=== PATIENT | female | born 1955 ===

== ENCOUNTER 2020-06-18 11:47 | Outpatient (REF) | payer MEDICAID, SELFPAY | END 2020-06-18 11:48 | disposition home or self-care (01) | LOC: HO.LAB 11:47 | PROVIDERS: Visit Provider Internal Medicine | DX: Z20.822 Contact with and (suspected) exposure to COVID-19 (principal) | CPT/HCPCS: 36415; C9803; U0003; U0005 ==

== ENCOUNTER 2021-03-05 08:55 | Outpatient (REF) | payer OTHER, SELFPAY ==
[2021-03-05 09:59] LABS: Alanine Aminotransferase 20 U/L (0-31); Albumin Level 4.3 g/dL (3.5-5.0); Alkaline Phosphatase 72 U/L (39-117); Anion Gap 12 (12-20); Aspartate Amino Transferase 18 U/L (5-31); Bilirubin Total 0.5 mg/dL (0.0-1.0); Blood Urea Nitrogen 13 mg/dL (9-16); Calcium 9.9 mg/dL (8.4-10.2); Carbon Dioxide 25 mmol/L (22-29); Chloride 108 mmol/L (96-108); Cholesterol 228 mg/dL; Estimated Glomerular Filt Rate > 60; Glucose Fasting 100 mg/dL (60-99); HDL Cholesterol 47 mg/dL; LDL Cholesterol Calculated 158 mg/dl; Potassium 4.2 mmol/L (3.3-5.1); Sodium 141 mmol/L (135-145); Total Protein 7.2 g/dL (6.5-8.0); Triglycerides 117 mg/dL
== END 2021-03-05 08:56 | disposition home or self-care (01) ==
LOC: HO.LAB 08:55
PROVIDERS: PCP Internal Medicine; Visit Provider Internal Medicine
DX: E78.00 Pure hypercholesterolemia, unspecified (principal); E78.5 Hyperlipidemia, unspecified
CPT/HCPCS: 36415; 80053; 80061

== ENCOUNTER 2021-04-23 13:19 | Outpatient (REF) | payer OTHER, SELFPAY ==
[2021-04-26 21:51] LABS: HPV mRNA E6/E7 rflx Not Detected (Not Detected)
== END 2021-04-23 13:20 | disposition home or self-care (01) ==
LOC: HO.LAB 13:19
PROVIDERS: PCP Internal Medicine; Visit Provider Obstetrics & Gynecology
DX: Z01.419 Encounter for gynecological examination (general) (routine) without abnormal findings (principal); Z11.51 Encounter for screening for human papillomavirus (HPV)
CPT/HCPCS: 87624; 88142

== ENCOUNTER → 2022-04-28 14:15 | Outpatient (BNVA) | payer OTHER, SELFPAY | PROVIDERS: PCP Internal Medicine; Visit Provider Obstetrics & Gynecology | DX: Z13.89 Encounter for screening for other disorder (principal) ==

== ENCOUNTER 2022-05-13 10:13 | Outpatient (REF) | payer OTHER, SELFPAY ==
--- NOTE | ~2022-05-13 | MM_ITS ---
EXAMINATION: BONE DENSITOMETRY CLINICAL INDICATION: Asymptomatic menopausal state. COMPARISON: None (current study represents initial baseline exam). TECHNIQUE: Using a Gigalocal DXA System (software version: 13.1) manufactured by [employer], dual-energy x-ray absorptiometry was performed of the lumbar spine and left hip. The images are of good technical quality. Summary results are attached. FINDINGS: AP SPINE L1-L4: BMD 0.853 g/cm2, Z-score -1.2, T-score -2.7, osteoporosis. LEFT FEMUR, NECK: BMD 0.716 g/cm2, Z-score -0.9, T-score -2.3, osteopenia. LEFT FEMUR, TOTAL: BMD 0.742 g/cm2, Z-score -1.0, T-score -2.1, osteopenia. IDENTIFIED RISK FACTORS: Menopause. HISTORY OF FRACTURE: None listed. MEDICATIONS: Vitamin D. MM/XR DEXA axial skeleton IMPRESSION: 1. DIAGNOSIS: Osteoporosis based on the lowest T-score value of -2.7 in the lumbar spine applying World Health Organization criteria. 2. 10-YEAR FRACTURE RISK PREDICTION, FRAX: According to the guidelines, FRAX calculation should only be performed on patients in the osteopenia bone density category. Therefore, FRAX was not performed on this patient.? 3. Treatment Recommendations: NOF guidelines recommend consideration for treatment in postmenopausal women and men age 50 and older presenting with the following: -A hip or vertebral (clinical or morphometric) fracture. -T-score less than or equal to -2.5 at the femoral neck or spine after appropriate evaluation to exclude secondary causes. -Low bone mass at the hip or spine and a 10-year fracture probability by FRAX of greater than or equal to 3% for hip fracture or greater than or equal to 20% for major osteoporotic fracture based on the [place] adapted WHO algorithm. 4. Other Recommendations: All treatment decisions require clinical judgment and consideration of individual patient factors, including patient preferences, comorbidities, previous drug use, risk factors not captured in the FRAX model (e.g. frailty, falls, vitamin D deficiency, increased bone turnover, interval significant decline in bone density) and possible under or overestimation of fracture risk by FRAX. Additional medical evaluation for secondary cause of low bone mineral density may be appropriate. FUTURE SCAN RECOMMENDATION: People with diagnosed cases of osteoporosis or at high risk for fracture should have regular bone mineral density tests. For patients eligible for Medicare, routine testing is allowed once every 2 years. The testing frequency can be increased to one year for patients who have rapidly progressing disease, those who are receiving or discontinuing medical therapy to restore bone mass, or have additional risk factors.
--- NOTE | ~2022-05-13 | MM_ITS ---
EXAMINATION: MM SCREENING DIGITAL BREAST TOMOSYNTHESIS, BILATERAL CLINICAL INFORMATION: Screening. Asymptomatic. Prior history remote reduction mammoplasty and mastopexy. The lifetime risk of breast cancer based on the Tyrer-Cuzick Model is 5%. COMPARISON: Mammography: 05/31/2018, 04/28/2017, 10/03/2016 TECHNIQUE: Digital breast tomosynthesis is performed in both the craniocaudal and mediolateral oblique views along with computer-aided detection (CAD). Synthesized 2D images are generated from the tomosynthesis. FINDINGS: There are scattered areas of fibroglandular density (ACR BI-RADS breast composition Category b). There are scattered bilateral asymmetries and fibronodular densities without significant change. No architectural abnormality or significant mass. There are scattered bilateral benign isolated and grouped round and coarse calcifications consistent with the prior surgery. The axilla are unremarkable. No significant change. MM/MM tomosynthesis screening BI IMPRESSION: No mammographic evidence of malignancy. ASSESSMENT: BI-RADS 2: Benign RECOMMENDATION: Routine annual mammography screening. This patient's information was entered into a reminder system with a target due date for their next mammogram.
== END 2022-05-13 10:14 | disposition home or self-care (01) ==
LOC: HO.MAMMO 10:13
PROVIDERS: PCP Internal Medicine; Visit Provider Obstetrics & Gynecology
DX: Z12.31 Encounter for screening mammogram for malignant neoplasm of breast (principal); Z13.820 Encounter for screening for osteoporosis; Z78.0 Asymptomatic menopausal state
CPT/HCPCS: 77063; 77067; 77080

== ENCOUNTER → 2022-05-22 10:56 | Outpatient (BNVA) | payer OTHER, SELFPAY | PROVIDERS: PCP Internal Medicine; Visit Provider Obstetrics & Gynecology | DX: M81.0 Age-related osteoporosis without current pathological fracture (principal); Z78.0 Asymptomatic menopausal state | CPT/HCPCS: 99212 ==

== ENCOUNTER 2023-04-30 13:32 | Outpatient (AMB) | payer MEDICARE, MEDICAID, SELFPAY ==
--- NOTE | 2023-04-30 13:38 | MHC.OFFVIS ---
Intake Vital Signs 04/30/23 13:39 Height 5 ft 4 in Weight 148 lb BMI 25.4 Intake Visit Reasons: Annual Project Administrative Assistant Required: Yes Project Administrative Assistant Language: Rn Transition Name: Jaimee Adame Information Interpreted: non-clinical & clinical Community Health Nursing Director: Community Health Nursing Director Present (Jaimee) Allergies No Known Allergies Allergy (Verified 04/30/23 13:41) Is last menstrual period known: No Post menopausal: Yes Patient : No HPI HPI Comments History of Present Illness Details Presenting for annual exam. No complaints. Last Pap/HPV was negative in 04/20 Last Mammogram was BI-RADS 2 in 05/22 Last Colonoscopy was in 2013, the patient was referred to GI for screening colonoscopy last year Last DEXA scan was done in 05/22 showed osteoporosis and the patient was prescribed alendronate , the patient developed bone and joint pain, muscle aches, headache and itching so she discontinued it on her own [facility] Medical History Physical exam Screening for cervical cancer Chronic left shoulder pain Allergic rhinitis Constipation Pure hypercholesterolemia GERD (gastroesophageal reflux disease) Surgical History Hx of abdominoplasty History of bladder suspension procedure Family History Father CVD (cardiovascular disease) Mother Unknown family medical history Sister Breast cancer Pancreatic cancer Social History Household Members Other:: son Housing: Apartment Alcohol intake: current Alcohol intake frequency: holidays/special occasions only Alcohol type: wine Patient Tobacco Use Status: Never used Tobacco Tobacco use type: Cigarette e-Cigarette/Vaping Use: Never Used Second Hand Smoke Exposure: No Patient : No service: No Current occupational status: unemployed Sexual orientation: Straight/Heterosexual Gender identity: Female Female Reproductive History Menstrual Age of Menarche: 15 control method: none Total pregnancies: 2 Full term: 2 Number of Living Children: 2 Date of last pap smear: 04/25/21 (negative) Date of Mammogram: 05/13/22 Date of last Bone Density Screenin05/13/22 Review of Systems Const All systems reviewed & are unremarkable except as noted in HPI and below Card Reports as per HPI Resp Reports as per HPI GI Reports as per HPI and Reports no additional complaints Reports as per HPI Physical Exam Vital Signs: BMI result Body Mass Index 25.4 Const General: cooperative, healthy appearing and comfortable Chest Chest palpation & inspection: normal inspection of the chest and normal palpation of entire chest wall Breast/axilla inspection: normal inspection of the breasts and normal inspection of the axillae Breast/axilla palpation: normal palpation of the breasts, normal palpation of the axillae and no axillary lymphadenopathy Resp Effort & Inspection: normal respiratory effort Auscultation: clear to auscultation bilaterally Percussion: percussion normal Cardio Palpation: normal PMI Rate: regular rate Rhythm: regular rhythm Heart sounds: no murmurs and no rubs Peripheral pulses: Peripheral pulses 2+ throughout GI Inspection: Yes normal to inspection Palpation (GI): Soft to palpation, nontender, no guarding, not rigid and No hepatosplenomegaly present Percussion: Yes normal to percussion Auscultation: normal bowel sounds Rectal Exam - Female: deferred General: Yes bladder normal to palpation External Female Exam: No lesion Speculum Exam - Vagina: normal appearance of the vagina, normal palpation, normal vaginal discharge and not erythematous Speculum Exam - Cervix: normal appearance of the cervix and normal palpation Bimanual exam- vagina & uterus: normal bimanual exam, normal palpation, uterine size normal, bladder normal to palpation, consistency normal and normal palpation Bimanual Exam- Adnexa, other: normal adnexae, no masses and no tenderness Assessment & Plan Assessment & Plan (1) Well woman exam: Code(s): Z01.419 - Encounter for gynecological examination (general) (routine) without abnormal findings Plan: Co testing not indicated since the patient 's age is above 65 with no history of abnormal Pap smears last 25 years. Counseled the patient about the recommended dietary allowance of 1200 mg of Calcium & 800 IU of vitamin D. Mammogram ordered. Referred her for screening colonoscopy . The patient was instructed to perform monthly self-breast exams and to schedule a follow-up appointment and an annual exam in a year; All questions answered and the patient verbalized understanding. (2) Osteoporosis: Comment: With side effects to alendronate Code(s): M81.0 - Age-related osteoporosis without current pathological fracture Plan: Since the patient developed side effects alendronate will refer to Rheumatology for further management of her osteoporosis Orders: Orders MM tomosynthesis screening BI Today Z12.31 - Encounter for screening mammogram for malignant neoplasm of breast Referrals Rheumatology Referral M81.0 - Age-related osteoporosis without current pathological fracture Coding Level of Care Code Est Pt Prev Care >65y(92332) Diagnoses Well woman exam Z01.419 Osteoporosis M81.0
[2023-04-30 13:39] VITALS: BMI 25.4
== END 2023-04-30 14:01 | disposition home or self-care (01) ==
LOC: HO.HWS 13:32
PROVIDERS: PCP Internal Medicine; Visit Provider Obstetrics & Gynecology
DX: M81.0 Age-related osteoporosis without current pathological fracture (principal); Z01.419 Encounter for gynecological examination (general) (routine) without abnormal findings
CPT/HCPCS: 99213; G0101

== ENCOUNTER → 2023-04-30 13:32 | Outpatient (BNVA) | payer MEDICARE, MEDICAID, SELFPAY | PROVIDERS: PCP Internal Medicine; Visit Provider Obstetrics & Gynecology | DX: Z01.419 Encounter for gynecological examination (general) (routine) without abnormal findings (principal); M81.0 Age-related osteoporosis without current pathological fracture | CPT/HCPCS: 99212; G0101 ==

== ENCOUNTER 2023-09-11 12:59 | Outpatient (REF) | payer MEDICARE, MEDICAID, SELFPAY | END 2023-09-11 13:00 | disposition home or self-care (01) | LOC: HO.MAMMO 12:59 | PROVIDERS: PCP Internal Medicine; Visit Provider Obstetrics & Gynecology | DX: Z12.31 Encounter for screening mammogram for malignant neoplasm of breast (principal) | CPT/HCPCS: 77063; 77067 ==

== ENCOUNTER → 2023-09-11 13:15 | Outpatient (BNV) | payer MEDICARE, MEDICAID, SELFPAY | PROVIDERS: PCP Internal Medicine; Visit Provider Radiology Diagnostic Radiology | DX: Z12.31 Encounter for screening mammogram for malignant neoplasm of breast (principal) | CPT/HCPCS: 77063; 77067 ==

== ENCOUNTER → 2023-09-18 08:44 | Outpatient (BNVA) | payer MEDICARE, MEDICAID, SELFPAY | PROVIDERS: PCP Internal Medicine; Visit Provider Nurse Practitioner Family ==

== ENCOUNTER 2024-02-22 15:48 | Outpatient (AMB) | payer OTHER, SELFPAY ==
--- NOTE | 2024-02-22 15:57 | A.OFFPC_ITS ---
Vital Signs 02/22/24 15:59 Height 5 ft 4 in Weight 154 lb BMI 26.4 BP 136/82 Blood Pressure Location Lt brachial Position Sitting Intake Visit Reasons: annual exam Intake Note: Patient here for an annual physical exam Manager Books Required: No Accompanied by: Self / Same As Patient Allergies alendronate sodium Adverse Reaction (Intermediate, Verified 02/22/24 16:39) nausea, joint pain Medication List - Last Reconciled 02/22/24 by Yolanda Reyes MD No Known Home Meds Tobacco use date assessed: 02/22/24 Fall risk assessment: No Falls in past year Last assessed Fall Risk: 02/22/24 Dental Screening Dental Screen Date: 02/22/24 Did you have a dental visit in the last 12 months?: Yes Did you have a dental problem in the last 6 months where you did not have access to dental care?: No Was dental information given to patient?: Patient has dentist HPI HPI Comments History of Present Illness Details The patient is a 68-year-old female presenting for her routine annual physical examination. She has a history of osteoporosis, diagnosed with a bone density T-score of -2.7, where treatment was initiated with Alendronate (Fosamax), a medication taken once weekly. However, the patient experienced s ignificant adverse reactions, including severe musculoskeletal pain, dizziness, stomach upset, and widespread pruritus, which led to discontinuation of the medication without seeking further medical evaluation for those side effects. She reports a past history of abdominoplasty with breast lifting and bladder suspension surgery. There is a family history of breast and pancreatic cancer in a sister, as well as coronary heart disease in her father who at 65. She confirms completing a mammogram and bone densitometry last year. Regarding her gastrointestinal symptoms, the patient has occasional acid secretion, which will be addressed with omeprazole. - Mammogram: Completed, 2023 - Bone density testing: Completed last y ear, results noted osteoporosis. - Declined influenza and pneumonia vacci nations. - Discussions regarding colonoscopy plan shahram for the following year. - Discussed referral to rheumatology or endocrinology for osteoporosis management alternatives. - Laboratory tests for cholesterol, bloo d sugar, kidney, and liver function are pending. [facility] Medical History Physical exam Screening for cervical cancer Chronic left shoulder pain Allergic rhinitis Constipation Pure hypercholesterolemia GERD (gastroesophageal reflux disease) Surgical History Hx of abdominoplasty History of bladder suspension procedure Family History (Updated 02/22/24 @ 16:36 by Yolanda Reyes MD) Father CVD (cardiovascular disease) Mother Unknown family medical history Sister Breast cancer Pancreatic cancer Social History Household Members Other:: son Housing: Apartment Alcohol intake: current Alcohol intake frequency: holidays/special occasions only Alcohol type: wine Patient Tobacco Use Status: Never used Tobacco Tobacco use type: Cigarette e-Cigarette/Vaping Use: Never Used Second Hand Smoke Exposure: No service: No Current occupational status: unemployed Sexual orientation: Straight/Heterosexual Gender identity: Female Cognitive needs: No Hearing needs: No Vision needs: No Female Reproductive History Menstrual Age of Menarche: 15 Questionnaire PHQ-9 Over the last 2 weeks, how often have you been bothered by any of the following problems? 1. Little interest or pleasure in doing things: not at all 2. Feeling down, depressed, or hopeless: not at all 3. Trouble falling or staying asleep, or sleeping too much: not at all 4. Feeling tired or having little energy: not at all 5. Poor appetite or overeating: not at all 6. Feeling bad about yourself - or that you are a failure or have let yourself or your family down: not at all 7. Trouble concentrating on things, such as reading the newspaper or watching television: not at all 8. Moving or speaking so slowly that other people could have noticed. Or the opposite - being so fidgety or restless that you have been moving around a lot more than usual: not at all 9. Thoughts that you would be better off or of hurting yourself in some way: not at all Total score: 0 Depression Screening Interpretation: Negative Depression Screening Done: Yes 04482 - PHQ-9 Billing: Yes Source: Developed by Drs. Chepe Carmona, Rosemarie Jin, Cruz Lowery and colleagues, with an educational carmen from for; to (do). Thrive Questionnaire Date Thrive assessed: 02/22/24 I am a: Patient What is your living situation today?: I have a steady place to live Within the past 12 months, did the food you bought not last and you didn't have the money to get more?: Never true Within the past 12 months, did you worry whether your food would run out before you got money to buy more?: Never true Do you have trouble paying for medicines?: No Do you have trouble getting transportation to medical appointments?: No Do you have trouble paying your heating and electricity bill?: No Do you have trouble taking care of your child, family member or friend?: No Do you have trouble with day-to-day activities such as bathing, preparing meals, shopping, managing finances, etc.?: No Are you currently unemployed and looking for a job?: No Are you interested in more education?: No Please select the resources that you would like help with: None Currently or been in a relationship where the following occur: No concerns reported THRIVE Score: 0 AUDIT C Alcohol Use Questionnaire (AUDIT-C) 1. How often do you have a drink containing alcohol?: Never Total Score: 0 CINDY-7 AMB Questionnaire CINDY-7 Date CINDY - 7 assessed: 02/22/24 Feeling nervous, anxious, or on edge: 0 = Not at all Not being able to stop or control worryin = Not at all Worrying too much about different things: 0 = Not at all Trouble relaxin = Not at all Being so restless that it is hard to sit still: 0 = Not at all Becoming easily annoyed or irritable: 0 = Not at all Feeling afraid as if something awful might happen: 0 = Not at all Total CINDY-7 score (0-4 normal; 5-9 mild; 10-14 moderate; 15-21 severe): 0 Source: Developed by Drs. Chepe Carmona, Rosemarie Jin, Cruz Lowery and colleagues, with an educational carmen from for; to (do). CINDY-7 Assessment Billing CINDY-7 Assessment Tool: CINDY-7 Assessment 24358 Review of Systems Const All systems reviewed & are unremarkable except as noted in HPI and below Eyes Reports no additional complaints, Denies change in vision and Denies other visual disturbances Card Denies chest pain at rest, Denies chest pain with activity, Denies edema, Denies irregular heart rhythm, Denies claudication, Denies dyspnea, Denies dyspnea on exertion, Denies orthopnea, Denies paroxysmal nocturnal dyspnea and Denies slow heart rate Resp Denies cough, Denies dyspnea and Denies dyspnea on exertion GI Denies abdominal pain, Denies change in bowel habits, Denies excessive flatus, Denies nausea and Denies vomiting Denies urinary incontinence, Denies urinary hesitancy and Denies urinary urgency Physical exam (Primary Care) Vital Signs: Last Vital Signs BP 136/82 02/22/24 15:59 BMI result Body Mass Index 26.4 Tobacco/Smoking Status: Tobacco use Status Tobacco use date assessed 02/22/24 02/22/24 16:05 Patient Tobacco Use Status Never used Tobacco 02/22/24 16:05 Tobacco use type Cigarette 02/22/24 16:05 e-Cigarette/Vaping Use Never Used 02/22/24 16:05 PHQ-9: PHQ-9 Score PHQ-9: Total score 0 02/22/24 16:36 Depression Screening Interpretation: Negative Thrive Assessment: Date of Thrive Assessment Date Thrive assessed 02/22/24 02/22/24 16:05 Currently or been in a relationship where the following occur: No concerns reported HENMT Head: Yes normal to inspection, Yes normocephalic and Yes atraumatic Ears: external ears normal Eyes General: appearance normal, both eyes and all related structures Eyelids: Yes eyelids normal Conjunctivae: conjunctivae normal Neck Neck: Yes normal visual inspection and Yes supple Resp Effort & Inspection: normal respiratory effort Auscultation: clear to auscultation bilaterally Cardio Jugular venous distension: no JVD Rate: regular rate Rhythm: regular rhythm Heart sounds: S1 normal heart sound present and S2 normal heart sound present GI Inspection: Yes normal to inspection Palpation (GI): Soft to palpation and nontender Auscultation: normal bowel sounds Skin General skin exam: no rashes or lesions noted Neuro General: no focal motor deficits Extrem General: Yes full ROM Psych Appearance: grossly normal Office Procedures Flu Questionnaire Does the patient have a severe egg allergy?: No Immunizations Fluarix Triv [id number] (PF) 45 mcg (15 mcg x 3)/0.5 mL IM syringe Performing Provider: Yolanda Reyse MD [facility] [place] Documented (not given) by: JYOTSNA Lindo on 02/22/24 16:05 Reason Not Given: Patient Refused Coding Level of Care Code Est Pt Level 3 (30680) Est Pt Prev Care >65y(67896) Diagnoses Physical exam Z00.00 Gastroesophageal reflux disease, unspecified whether esophagitis present K21.9 Esophagitis presence: esophagitis presence not specified Osteoporosis M81.0 Additional Codes CINDY-7 Assessment Billing - CINDY-7 Assessment Tool: CINDY-7 Assessment 18588 ([id number]) PHQ-9 - 01179 - PHQ-9 Billing: Yes ([id number]) Time Spent (min) 33 Assessment & Plan Assessment & Plan (1) Physical exam: Code(s): Z00.00 - Encounter for general adult medical examination without abnormal findings Category: Medical (2) GERD (gastroesophageal reflux disease): Code(s): K21.9 - Gastro-esophageal reflux disease without esophagitis Category: Medical Qualifiers: Esophagitis presence: esophagitis presence not specified Qualified Code(s): K21.9 - Gastro-esophageal reflux disease without esophagitis (3) Osteoporosis: Comment: With side effects to alendronate Code(s): M81.0 - Age-related osteoporosis without current pathological fracture Category: Medical Plan - Osteoporosis: Discontinue Fosamax due to severe adverse effects. Consider referral to rheumatology or endocrinology for alternative options such as Parathyroid Hormone analog Prolia) or an annual infusion of bisphosphonate. - GERD: Initiate treatment with omeprazole, a proton pump inhibitor, to manage acid symptoms. - Constipation: Continue evaluations and manage symptoms as needed. - Health Maintenance: Advise laboratory tests this or next week to check cholesterol, blood sugar, kidney, and liver functions. - Vaccinations: Patient declined flu and pneumonia vaccines; monitor for changes in decision. Patient was informed and verbally consented to the use of an ambient scribe for clinic note documentation during this visit. I discussed with the patient the adverse effects experienced with Alendronate and the possibility of alternative therapies for osteoporosis management, including options with less frequent dosing such as Prolia injections or annual bisphosphonate infusions. These alternatives were mentioned regarding their efficacy and usability. For GERD management, we agreed on starting omeprazole. The patient opted out of influenza and pneumonia vaccinations despite explanations of their benefits. We agreed to proceed with routine laboratory work to assess cardiovascular and metabolic health. For osteoporosis management, referral to a food vendor or butter grader was suggested for further evaluation and specialized treatment. Orders: Orders Influenza [id number] Immunization Today Z23 - Encounter for immunization Comprehensive [place]. Panel Fast Today Z00.00 - Encounter for general adult medical examination without abnormal findings Lipid Panel Today Z00.00 - Encounter for general adult medical examination without abnormal findings Referrals Rheumatology Referral M81.0 - Age-related osteoporosis without current pathological fracture Medications: New sennosides (Senna Lax) 8.6 mg PO BEDTIME 90 tabs 1RF 90 days omeprazole 20 mg PO DAILY 90 caps 0RF 90 days Patient Instructions: - Discontinue Fosamax and monitor for any persistent symptoms. - Start omeprazole for management of GERD symptoms. - Follow up with referred specialists for osteoporosis management. - Complete laboratory tests as discussed, at your earliest convenience. - Consider reconsidering vaccinations in the future for influenza and pneumonia. - Return should you experience any new or worsening symptoms related to current health issues discussed.
[2024-02-22 15:59] VITALS: BP 136/82; BMI 26.4
== END 2024-02-22 16:43 | disposition home or self-care (01) ==
PROVIDERS: PCP Internal Medicine; Visit Provider Internal Medicine
DX: Z00.00 Encounter for general adult medical examination without abnormal findings (principal); K21.9 Gastro-esophageal reflux disease without esophagitis; M81.0 Age-related osteoporosis without current pathological fracture

== ENCOUNTER → 2024-02-22 15:48 | Outpatient (BNVA) | payer OTHER, SELFPAY | PROVIDERS: PCP Internal Medicine; Visit Provider Internal Medicine | DX: Z00.01 Encounter for general adult medical examination with abnormal findings (principal); K21.9 Gastro-esophageal reflux disease without esophagitis; M81.0 Age-related osteoporosis without current pathological fracture | CPT/HCPCS: 96127; 99212; 99397 ==

== ENCOUNTER 2024-03-01 06:42 | Day surgery (SDC) | payer OTHER, SELFPAY ==
[2024-02-24 13:49] VITALS: BMI 26.4
--- NOTE | 2024-02-29 09:35 | HO.ANESPROP2 ---
Documented by User: Pricila Dexter NP 02/29/24 09:36 HPI - Anesthesia Eval Consult details Narrative: 68yo F for Colonoscopy PMFSH Active Problems Active Problems: All Active Problems Lumbar degenerative disc disease (Acute) Osteoporosis (Acute) Menopause (Acute) Well woman exam (Acute) Physical exam (Acute) Screening for cervical cancer (Acute) Pure hypercholesterolemia (Acute) GERD (gastroesophageal reflux disease) (Acute) Past Medical History Medical History Screening for cervical cancer Chronic left shoulder pain Allergic rhinitis Constipation Pure hypercholesterolemia GERD (gastroesophageal reflux disease) Family History Family History Father CVD (cardiovascular disease) Mother Unknown family medical history Sister Breast cancer Pancreatic cancer Surgical History Surgical History Hx of abdominoplasty History of bladder suspension procedure Social History Social History Household Members Other:: son Housing: Apartment Alcohol intake: current Alcohol intake frequency: does not drink Alcohol type: wine Patient Tobacco Use Status: Never used Tobacco Tobacco use type: Cigarette e-Cigarette/Vaping Use: Never Used Second Hand Smoke Exposure: No Have you been hit, kicked, punched, or otherwise hurt by someone within the past year? If so, by whom?: No Are you DNR?: No Advance Directives: No Advance Directives Information Provided: Yes Recently lost weight without trying: No Nutrition Risks: No Nutritional Risk service: No Current occupational status: unemployed Sexual orientation: Straight/Heterosexual Gender identity: Female Cognitive needs: No Hearing needs: No Vision needs: No Meds Allergies Allergy/AdvReac Type Severity Reaction Status Date / Time alendronate sodium AdvReac Intermediate nausea, Verified 02/22/24 16:39 joint pain Exam Height,Weight and Vital Signs: Height 5 ft 4 in Weight 69.853 kg Assessment and Plan Assessment Anesthesia Assessment: Chart Reviewed Documented by User: Irena Macias MD 03/01/24 08:49 PMFSH Past Medical History Medical History Screening for cervical cancer Chronic left shoulder pain Allergic rhinitis Constipation Pure hypercholesterolemia GERD (gastroesophageal reflux disease) Family History Family History Father CVD (cardiovascular disease) Mother Unknown family medical history Sister Breast cancer Pancreatic cancer Family history of problems with anesthesia: No Surgical History Surgical History Hx of abdominoplasty History of bladder suspension procedure History of Problems with Anesthesia: No Social History Social History Household Members Other:: son Housing: Apartment Alcohol intake: current Alcohol intake frequency: does not drink Alcohol type: wine Patient Tobacco Use Status: Never used Tobacco Tobacco use type: Cigarette e-Cigarette/Vaping Use: Never Used Second Hand Smoke Exposure: No Have you been hit, kicked, punched, or otherwise hurt by someone within the past year? If so, by whom?: No Are you DNR?: No Advance Directives: No Advance Directives Information Provided: Yes Recently lost weight without trying: No Nutrition Risks: No Nutritional Risk service: No Current occupational status: unemployed Sexual orientation: Straight/Heterosexual Gender identity: Female Cognitive needs: No Hearing needs: No Vision needs: No Meds Allergies Allergy/AdvReac Type Severity Reaction Status Date / Time alendronate sodium AdvReac Intermediate nausea, Verified 02/22/24 16:39 joint pain Exam Airway Mallampati Class: II TM Dist: >3cm Neck ROM: Full Heart: rrr Lungs: cta Assessment and Plan Assessment Anesthesia Assessment: Anesthesia Plan Discussed Final Anesthetic Review Family History of Problems with Anesthesia: No History of Problems with Anesthesia: No NPO: Yes ASA Class: II Final Preanesthetic Review: No Changes in Pt Med Stat, Meds/Allgs Chart Reviewed, Consent Obtained/Reviewed and Anes Risks/Benef Reviewed Patient Risk: Intermediate Procedure Risk: Low Anesthetic Plan Anesthetic Plan: MAC: Disposition: Standard PACU
[2024-03-01 07:10] VITALS: BP 144/92; PULSE 100; RESP 20; TEMP 37; O2SAT 98; BMI 26.6
[2024-03-01] MEDS: Lactated Ringers 1,000 ML 100 ML IVCONT (07:30)
--- NOTE | 2024-03-01 08:09 | MHC.SHP ---
Pre-Procedural Eval Section A - 24 Hr Update-Section A only Date of Service: 03/01/24 Section B - Complete if H&P > 30 days Chief Complaint: screening Relevant Family History (Specify if Yes): No Relevant Social History: None Present Medications: see Short Stay Collaborative assessment Medical History: Significant History (Chronic left shoulder pain Allergic rhinitis Constipation Pure hypercholesterolemia GERD (gastroesophageal reflux disease)) History of Previous Operations: Relevant previous surgery/procedure and date(s) ( Hx of abdominoplasty History of bladder suspension procedure) Allergies: Allergies Allergy/AdvReac Type Severity Reaction Status Date / Time alendronate sodium AdvReac Intermediate nausea, Verified 02/22/24 16:39 joint pain Review of Systems Sugical H&P ROS: Negative: Constitution, Cardiovascular, Respiratory, Neurological, Psychiatric, Hem-Onc, Allergic/Immunologic, Gastrointestinal, Genitourinary, Musculoskeletal, Integumentary, Endocrine and Eyes/Ears/Nose/Throat Exam Surgical H&P Exam: Normal: HEENT, Normal: Heart, Normal: Lungs, Normal: Extremities, Normal: Abdomen, Normal: Skin and Normal: Neurological Plan Diagnosis/Plan: Unchanged I have reviewed the history and physical and performed a pertinent physical examination on my patient. No changes have occurred unless specified. Time Spent With Patient Time: Total time managing care of this patient today ____ minutes.
--- NOTE | 2024-03-01 08:48 | P.OPN-COLO_ITS ---
Colonoscopy Operative Note Operative Note Date of Service: 03/01/24 Narrative: Operative Information Procedure Description: Colonoscopy Indication: screening, hx of polyps Anesthesia: MAC COLONOSCOPY Instrument: Olympus variable stiffness pediatric scope 190L Colonoscopy Monitoring: Vital signs and clinical assessment, continuous EKG monitoring, Pulse oximetry, Carbon Dioxide monitoring and blood pressure monitoring were done throughout the procedure. Colon withdrawal time was 22 minutes. Procedure: The patient was placed in the left lateral decubitis position and pre-procedure medications were administered. After a digital rectal examination of the ano-rectum, the video colonoscope was inserted into the rectum and advanced through the colon to the cecum/TI. The colonoscope was slowly withdrawn in a retrograde panoramic fashion and the colon mucosa was carefully examined including a retroflexed view of the rectum. Findings and interventions are described below. Procedure Difficulty: easy Findings: Terminal Ileum-normal Cecum: x 2 sessile polyps 4-6 mm removed with cold forceps Ascending Colon: x1 sessile polyp 5-7 mm removed with cold forceps Transverse Colon - 6-9 mm sessile polyp removed with cold snare Descending Colon:normal Sigmoid Colon: 9-10 mm sessile polyp removed with cold snare Rectum: Retroflexion with small internal hemorrhoids seen, grade I, at 15 cm from anal verge a large pedunculated polyp about 20 mm, injected with 2 cc of epinephrine then removed with hot snare and removed with hot snare with 2 clips applied Anorectum - normal Intervention: cold snare, cold forceps, hot snare and epinephrine injection Colon preparation: [place] Bowel Preparation Scale Right colon; 2 Transverse colon: 2 Left colon; 2 (0 = Unprepared colon segment with mucosa not seen due to solid stool that cannot be cleared. 1 = Portion of mucosa of the colon segment seen, but other areas of the colon segment not well seen due to staining, residual stool and/or opaque liquid. 2 = Minor amount of residual staining, small fragments of stool and/or opaque liquid, but mucosa of colon segment seen well. 3 = Entire mucosa of colon segment seen well with no residual staining, small fragments of stool or opaque liquid) Impression and Post Procedure Diagnosis: colon polyps internal hemorrhoids Plan: High fiber diet leaflet Avoid straining at stool, epsom salts and sitz bath, anusol supps or cream Repeat Colonoscopy in 6 months or earlier if clinically indicated Above findings were reviewed with the patient and relevant handouts were provided if indicated.
[2024-03-01 08:52] VITALS: BP 90/53; PULSE 83; RESP 16; TEMP 36.1; O2SAT 94
[2024-03-01 09:08] VITALS: BP 144/96; PULSE 93; RESP 16; TEMP 36.1; O2SAT 97
== END 2024-03-01 09:39 | disposition home or self-care (01) ==
PROVIDERS: PCP Internal Medicine; Visit Provider Internal Medicine Gastroenterology
PROC: 0DJD8ZZ Inspection of Lower Intestinal Tract, Via Natural or Artificial Opening Endoscopic (ICD-10-PCS; CPT 45378; principal; 2024-03-01 08:20)
DX: Z12.11 Encounter for screening for malignant neoplasm of colon (principal); Z86.0101 Personal history of adenomatous and serrated colon polyps; C20 Malignant neoplasm of rectum; D12.0 Benign neoplasm of cecum; D12.2 Benign neoplasm of ascending colon; D12.3 Benign neoplasm of transverse colon; K64.0 First degree hemorrhoids; K59.00 Constipation, unspecified; K21.9 Gastro-esophageal reflux disease without esophagitis; E78.00 Pure hypercholesterolemia, unspecified; J30.9 Allergic rhinitis, unspecified; Z56.0 Unemployment, unspecified; Z79.899 Other long term (current) drug therapy; Z88.8 Allergy status to other drugs, medicaments and biological substances
CPT/HCPCS: 45385; 45380; 45381; 88305; 88341; 88342; 88360; J0171; J2003; J2704

== ENCOUNTER → 2024-03-01 06:42 | Outpatient (BNV) | payer OTHER, SELFPAY | PROVIDERS: PCP Internal Medicine; Visit Provider Internal Medicine Gastroenterology | DX: Z12.11 Encounter for screening for malignant neoplasm of colon (principal); Z86.0100 Personal history of colon polyps, unspecified; D12.0 Benign neoplasm of cecum; D12.2 Benign neoplasm of ascending colon; D12.3 Benign neoplasm of transverse colon; D12.5 Benign neoplasm of sigmoid colon; D12.8 Benign neoplasm of rectum; K64.0 First degree hemorrhoids | CPT/HCPCS: 45380; 45381; 45385 ==

== ENCOUNTER 2024-03-11 08:52 | Outpatient (AMB) | payer OTHER, SELFPAY ==
--- NOTE | 2024-03-11 08:55 | A.OFFVIS_ITS ---
Vital Signs 03/11/24 08:57 Height 5 ft 4 in Weight 152 lb 1.903 oz BMI 26.1 BP 164/8 H Blood Pressure Location Lt brachial Position Sitting Pulse 128 H Intake Visit Reasons: f/u colonoscopy results Intake Note: Amrita presents in the office as a follow up for colonoscopy results. CC: She states that she is not having any concerns other than the results. Agricultural Research Technician Required: Yes Agricultural Research Technician Name: Megan [id number] Allergies alendronate sodium Adverse Reaction (Intermediate, Verified 03/11/24 08:59) nausea, joint pain HPI HPI f/u colonoscopy results: Details: 68 yr old f here for f/u She had colonoscopy 03/01/24 She had several polyps removed, there was one in the rectum with path revealing invasive adenocarcinoma she has no symptoms, no abdo pain reviewed CRC and treatment outlines with help of wire wheeler EXAM: GENERAL: The patient is well developed and nontoxic. VITAL SIGNS:see workflow HEENT: Nonicteric sclerae, PERRLA, EOMI. Oropharynx clear. Moist mucous membranes. Conjunctivae appear well perfused. No thyroid mass. CHEST: Chest wall is nontender. HEART: Regular rate and rhythm without murmurs. LUNGS: Clear to auscultation bilaterally. ABDOMEN: Soft, positive bowel sounds, nontender, no organomegaly.no flank tenderness SKIN: No rash, no excessive bruising, petechiae, or purpura. NEUROLOGIC: Cranial nerves II-XII intact without motor/sensory deficit. Psych: normal affect A/p: 1/ COlon cancer--rectum---wild type PLAN: 1/ refer oncology and surgery- will order CT scan --might need MRI as well will defer to onc 2/ repeat colon in about 8-12 months-- high risk PFSH Medical History Screening for cervical cancer Chronic left shoulder pain Allergic rhinitis Constipation Pure hypercholesterolemia GERD (gastroesophageal reflux disease) Surgical History Hx of colonoscopy Hx of abdominoplasty History of bladder suspension procedure Family History Father CVD (cardiovascular disease) Mother Unknown family medical history Sister Breast cancer Pancreatic cancer Social History Household Members Other:: son Housing: Apartment Alcohol intake: current Alcohol intake frequency: does not drink Alcohol type: wine Patient Tobacco Use Status: Never used Tobacco Tobacco use type: Cigarette e-Cigarette/Vaping Use: Never Used Second Hand Smoke Exposure: No service: No Current occupational status: unemployed Sexual orientation: Straight/Heterosexual Gender identity: Female Cognitive needs: No Hearing needs: No Vision needs: No Female Reproductive History Menstrual Age of Menarche: 15 Physical Exam Vital Signs: Last Vital Signs Pulse 128 H 03/11/24 08:57 BP 164/8 H 03/11/24 08:57 BMI result Body Mass Index 26.1 Assessment & Plan Assessment & Plan (1) Colon cancer: Code(s): C18.9 - Malignant neoplasm of colon, unspecified Category: Medical Plan: see above Orders: Orders CT abdomen pelvis w IV con 03/11/24 C18.9 - Malignant neoplasm of colon, unspecified CT chest w IV con 03/11/24 C18.9 - Malignant neoplasm of colon, unspecified Comprehensive Met. Panel 03/11/24 C18.9 - Malignant neoplasm of colon, unspecified, K75.81 - Nonalcoholic steatohepatitis (RIVERA) Carcinoembryonic Antigen 03/11/24 C18.9 - Malignant neoplasm of colon, unspecified Referrals Hematology & Oncology Referral C18.9 - Malignant neoplasm of colon, unspecified Colon & Rectal Referral C18.9 - Malignant neoplasm of colon, unspecified Coding Level of Care Code Est Pt Level 4 (24723) Diagnoses Colon cancer C18.9
[2024-03-11 08:57] VITALS: BP 164/8; PULSE 128; BMI 26.1
== END 2024-03-11 09:35 | disposition home or self-care (01) ==
PROVIDERS: PCP Internal Medicine; Visit Provider Internal Medicine Gastroenterology
DX: C18.9 Malignant neoplasm of colon, unspecified (principal)
CPT/HCPCS: 99214

== ENCOUNTER → 2024-03-11 08:52 | Outpatient (BNVA) | payer OTHER, SELFPAY | PROVIDERS: PCP Internal Medicine; Visit Provider Internal Medicine Gastroenterology | DX: C18.9 Malignant neoplasm of colon, unspecified (principal) | CPT/HCPCS: 99212 ==

== ENCOUNTER 2024-03-21 08:12 | Outpatient (AMB) | payer OTHER, SELFPAY ==
--- NOTE | 2024-03-21 08:16 | A.OFFVIS_ITS ---
Vital Signs 03/21/24 08:23 Height 5 ft 4 in Weight 148 lb BMI 25.4 BP 159/99 H Blood Pressure Location Rt brachial Position Sitting Pulse 107 H Intake Visit Reasons: colon cancer Intake Note: This patient was referred by for Malignant neoplasm of colon. Pt c/o; reports no rectal bleeding or pain, reports she was referred by for follow-up status post colonoscopy. Powerhouse Mechanic Supervisor Required: Yes Powerhouse Mechanic Supervisor Language: Area Field Worker Services: Powerhouse Mechanic Supervisor Present (Simón) Accompanied by: Son Allergies alendronate sodium Adverse Reaction (Intermediate, Verified 03/21/24 08:26) nausea, joint pain Medication List - Last Reconciled 03/21/24 by Morro Mcbride MD omeprazole 20 mg PO DAILY 90 days HPI HPI colon cancer: Details: [age] year old female otherwise healthy, referred for a rectal polyp with adenocarcinoma. She had undergone a screening colonoscopy last 03/01/[address] Busby. Multiple polyps were removed throughout the colon. These were benign but there was 1 polyp at level 15 cm, pedunculated, 2 cm in size with note of an adenocarcinoma. She was referred for referred to me She otherwise denies GI complaints. She denies any history of intra-abdominal surgeries. She does have a history of abdominoplasty and surgery for a vaginal prolapse. [facility] Medical History (Updated 03/21/24 @ 08:54 by Morro Mcbride MD) Rectal cancer Screening for cervical cancer Chronic left shoulder pain Allergic rhinitis Constipation Pure hypercholesterolemia GERD (gastroesophageal reflux disease) Surgical History Hx of colonoscopy Hx of abdominoplasty History of bladder suspension procedure Family History Father CVD (cardiovascular disease) Mother Unknown family medical history Sister Breast cancer Pancreatic cancer Social History Household Members Other:: son Housing: Apartment Alcohol intake: current Alcohol intake frequency: does not drink Alcohol type: wine Patient Tobacco Use Status: Never used Tobacco Tobacco use type: Cigarette e-Cigarette/Vaping Use: Never Used Second Hand Smoke Exposure: No service: No Current occupational status: unemployed Sexual orientation: Straight/Heterosexual Gender identity: Female Cognitive needs: No Hearing needs: No Vision needs: No Female Reproductive History Menstrual Age of Menarche: 15 Review of Systems Const Denies chills and Denies fever(s) Card Denies chest pain, Denies dyspnea and Denies dyspnea on exertion Resp Denies cough, Denies dyspnea and Denies dyspnea on exertion GI Denies hematochezia and Denies change in bowel habits Denies hematuria Musc Denies back pain and Denies limited range of motion Neuro Denies focal weakness and Denies convulsions Psych Denies depression and Denies mood swings Physical Exam Vital Signs: Last Vital Signs Pulse 107 H 03/21/24 08:23 BP 159/99 H 03/21/24 08:23 BMI result Body Mass Index 25.4 Const General: comfortable and no acute distress Orientation/consciousness: patient oriented x3 Neck Neck: Yes no lymphadenopathy Resp Auscultation: clear to auscultation bilaterally Cardio Rhythm: regular rhythm GI Palpation (GI): Soft to palpation, nontender and no guarding Neuro General: patient oriented x3 Assessment & Plan Assessment & Plan (1) Rectal cancer: Code(s): C20 - Malignant neoplasm of rectum Category: Medical Plan: She had a 2 cm polyp removed at level 15 cm. There was note of the presence of an invasive adenocarcinoma within the polyp. The margins were negative up to 4 mm. This was well-differentiated but there was note of lymphovascular invasion. I explained to her that the presence of lymphovascular invasion may be a marker for local recurrence. I explained to her the option of proceeding with anterior resection. I explained the technique of this procedure One option is to follow her closely with frequent flexible sigmoidoscopy as well as imaging studies I explained to her that I will send her for a 2nd opinion to [facility] colorectal [facility]. In the meantime I will arrange for her to have CT scan of the abdomen and pelvis I told her that I can see her for follow up in the next month or so in the office to be sure that she is navigated properly and promptly. Orders: Orders CT abdomen pelvis w IV con Today C20 - Malignant neoplasm of rectum Blood Urea Nitrogen Today C20 - Malignant neoplasm of rectum Creatinine Today C20 - Malignant neoplasm of rectum Coding Level of Care Code New Pt Level 4 (67618) Diagnoses Rectal cancer C20
[2024-03-21 08:23] VITALS: BP 159/99; PULSE 107; BMI 25.4
== END 2024-03-21 08:54 | disposition home or self-care (01) ==
PROVIDERS: PCP Internal Medicine; Visit Provider Surgery
DX: C20 Malignant neoplasm of rectum (principal)
CPT/HCPCS: 99204

== ENCOUNTER → 2024-03-21 08:12 | Outpatient (BNVA) | payer OTHER, SELFPAY | PROVIDERS: PCP Internal Medicine; Visit Provider Surgery | DX: C20 Malignant neoplasm of rectum (principal) | CPT/HCPCS: 99202 ==

== ENCOUNTER 2024-03-22 11:44 | Outpatient (REF) | payer OTHER, SELFPAY ==
--- NOTE | ~2024-03-22 | CT_ITS ---
EXAMINATION: CT ABDOMEN PELVIS WITH IV CONTRAST, CT CHEST WITH IV CONTRAST CLINICAL INFORMATION: C18.9 - Malignant neoplasm of colon, unspecified COMPARISON: None. TECHNIQUE: IV contrast and CT of the chest, abdomen and pelvis. Intravenous Contrast: Omnipaque [address] examination was performed using dose optimization techniques as appropriate, variously including the following: *Automated exposure control *Adjustment of mA and/or kV according to patient size (this includes techniques or standardized protocols for targeted exams where dose is matched to indication/reason for exam; i.e. extremities or head) *Use of iterative reconstruction technique DLP: 441 mGy-cm FINDINGS: Lungs and pleura: No suspicious pulmonary nodules noted. No pulmonary consolidation. No pleural effusions or pneumothoraces. No peribronchial wall thickening. No endobronchial lesions identified. Mediastinum: The thyroid is partially included on imaged field of view. Partial visualization is made of a 6 mm x 4 mm nodule within the left lobe of the thyroid superiorly. A 5 mm x 4 mm nodule is present more inferiorly within the left lobe of the thyroid. A 6 mm x 5 mm nodule is present inferiorly within the right lobe of the thyroid. No mediastinal lymphadenopathy. Normal caliber of the thoracic aorta. Partial visualization of at least mild calcific atherosclerotic plaque within the proximal left anterior descending coronary artery. Normal heart size. No pericardial thickening or pericardial fluid collections. CHEST WALL: No axillary lymphadenopathy. No thoracic wall inflammatory changes. Liver: The liver is normal in size and capsular contour. No intrahepatic biliary duct dilatation. No focal parenchymal lesions of the liver. Biliary system: Gallbladder is physiologically distended. Normal appearance of the gallbladder. No biliary duct dilatation. Pancreas: Normal. Spleen: Normal. Adrenal glands: Normal Kidneys: No suspicious parenchymal lesions. No hydronephrosis or perinephric inflammatory changes. No urolithiasis. No ureterectasis. Urinary bladder: Normal. Few system: Normal appearance of the uterus. 12 mm diameter right adnexal cyst (15 Hounsfield unit). Gastrointestinal system: Mild sigmoid diverticulosis. Focal eccentric mural thickening of the proximal transverse colon to the width of 7 mm noted (series 4 image 30, series 3 image 35). No intestinal dilatation visualized. Normal appearance of the appendix. No free intraperitoneal fluid or gas collections. Oral contrast agent is noted within the stomach, jejunum and proximal ileum. Normal appearance of the sigmoid mesentery and small bowel mesentery. Normal appearance of the stomach and duodenum. Abdominal and pelvic lymphovascular structures: No lymphadenopathy. Normal caliber of the abdominal aorta. Minimal scattered nonocclusive aortoiliac calcific atherosclerosis. Abdominal wall: No intestinal hernias. Osseous structures within the chest, abdomen and pelvis: Mild-moderate rotatory levoscoliosis of the lumbar spine. The L1 vertebral body demonstrates moderate anterior wedge deformity within or deformity of the superior endplate and approximately 50% maximal loss of craniocaudal height. No paraspinous inflammatory changes noted in this region. Intervertebral disc vacuum phenomenon is present at T12-L1 and L1-L2. Overall, findings appear chronic. CT/CT abdomen pelvis w IV con IMPRESSION: IV contrast enhanced CT of the chest, abdomen and pelvis: *Borderline eccentric mural thickening of the proximal transverse colon to the width of 7 mm, slightly above the expected limits of normal size. This finding may correlate with the given history of neoplasm of the colon. This finding also represent normal appearance of contracted/collapsed bowel. No findings suspicious for metastatic disease within the chest, abdomen and pelvis. *Indeterminate thyroid nodules. Thyroid is partially included on imaged field of view. Bilateral thyroid nodules measuring up to 6 mm in diameter present. Recommend further evaluation based on oncologic protocol. As clinically indicated, findings could be further evaluated with dedicated ultrasonography of the thyroid. *Single 12 mm unilocular-appearing right adnexal cyst which is most likely to be benign. Recommend further evaluation based on oncologic imaging protocol. *Chronic appearing L1 vertebral body compression deformity with 50% loss of craniocaudal height and normal in deformity of the superior endplate of L1. No associated retropulsion. *Mild sigmoid diverticulosis. Electronically signed by: Derik Messina MD 03/22/2024 06:36 PM [facility] [place]
[2024-03-22] MEDS: Barium Sulfate Oral (Vanilla) 450 ML ORAL.SUSP PO ×2 (14:50)
[2024-03-22] MEDS: iohexoL 350 MG/ML 100 ML INFUS..BTL IV (14:50)
[2024-03-25 07:16] LABS: Creatinine POC 0.7 mg/dL (0.5-1.4); GFR POC > 60
== END 2024-03-22 11:45 | disposition home or self-care (01) ==
LOC: HO.CT 11:44
PROVIDERS: PCP Internal Medicine; Visit Provider Internal Medicine Gastroenterology
DX: C18.9 Malignant neoplasm of colon, unspecified (principal)
CPT/HCPCS: 71260; 74177; 82565; Q9967

== ENCOUNTER → 2024-03-28 13:47 | Outpatient (BNV) | payer OTHER, SELFPAY | PROVIDERS: PCP Internal Medicine; Visit Provider Internal Medicine Medical Oncology | DX: C20 Malignant neoplasm of rectum (principal) | CPT/HCPCS: 99204 ==

== ENCOUNTER 2024-04-06 08:34 | Outpatient (REF) | payer OTHER, SELFPAY ==
[2024-04-06 10:31] LABS: Alanine Aminotransferase 35 U/L (0-31); Albumin Level 4.4 g/dL (3.5-5.0); Anion Gap 9 (12-20); Aspartate Amino Transferase 29 U/L (5-31); Bilirubin Total 0.4 mg/dL (0.0-1.0); Blood Urea Nitrogen 12 mg/dL (9-16); Calcium 9.7 mg/dL (8.4-10.2); Carbon Dioxide 28 mmol/L (22-29); Chloride 109 mmol/L (96-108); Cholesterol 230 mg/dL (<200); Estimated Glomerular Filt Rate > 60; Glucose Fasting 95 mg/dL (60-99); Glucose Random 96 mg/dL (60-115); HDL Cholesterol 54 mg/dL (>40); LDL Cholesterol Calculated 149 mg/dL (<100); Potassium 4.2 mmol/L (3.3-5.1); Sodium 142 mmol/L (135-145); Total Protein 7.7 g/dL (6.5-8.0); Triglycerides 138 mg/dL (<150)
[2024-04-06 10:47] LABS: Alkaline Phosphatase 69 U/L (39-117)
[2024-04-06 10:54] LABS: Carcinoembryonic Antigen < 1.73 ng/mL
== END 2024-04-06 08:35 | disposition home or self-care (01) ==
LOC: HO.LAB 08:34
PROVIDERS: Absent Provider Internal Medicine; PCP Internal Medicine; Referring Provider Internal Medicine Gastroenterology; Visit Provider Surgery
DX: Z00.00 Encounter for general adult medical examination without abnormal findings (principal); C18.9 Malignant neoplasm of colon, unspecified; K75.81 Nonalcoholic steatohepatitis (NASH)
CPT/HCPCS: 36415; 80053; 80061; 82378

== ENCOUNTER 2024-04-25 11:50 | Outpatient (AMB) | payer OTHER, SELFPAY ==
--- NOTE | 2024-04-25 12:03 | A.OFFVIS_ITS ---
Vital Signs 04/25/24 12:04 Height 5 ft 4 in Weight 152 lb 8 oz BMI 26.2 Intake Visit Reasons: one month follow-up rectal cancer Intake Note: This patient presents for a one month follow-up for rectal cancer. Pt c/o; no concerns. Geological Specialist Required: Yes Geological Specialist Services: Geological Specialist Present Geological Specialist Name: Simón Information Interpreted: non-clinical & clinical Accompanied by: Self / Same As Patient Allergies alendronate sodium Adverse Reaction (Intermediate, Verified 04/25/24 12:04) nausea, joint pain Medication List - Last Reconciled 04/25/24 by Morro Mcbride MD omeprazole 20 mg PO DAILY 90 days HPI HPI one month follow-up rectal cancer: Details: She is here for a malignant rectal polyp. I had sent her for an opinion in [facility]. She says that she was told that there were not planning to do any resection at this time She did have a CT scan as well which did not reveal any suggestion of any other lesion nor metastatic disease. MRI was unremarkable. She denies any significant GI complaints. FORMERLY [facility], 1928–1983 Medical History Rectal cancer Screening for cervical cancer Chronic left shoulder pain Allergic rhinitis Constipation Pure hypercholesterolemia GERD (gastroesophageal reflux disease) Surgical History Hx of colonoscopy Hx of abdominoplasty History of bladder suspension procedure Family History Father CVD (cardiovascular disease) Mother Unknown family medical history Sister Breast cancer Pancreatic cancer Social History Household Members: Family Household Members Other:: son Housing: Apartment Alcohol intake: current Alcohol intake frequency: does not drink Alcohol type: wine Patient Tobacco Use Status: Never used Tobacco Tobacco use type: Cigarette e-Cigarette/Vaping Use: Never Used Second Hand Smoke Exposure: No service: No Current occupational status: unemployed Sexual orientation: Straight/Heterosexual Gender identity: Female Cognitive needs: No Hearing needs: No Vision needs: No Female Reproductive History Menstrual Age of Menarche: 15 Review of Systems Const Denies chills and Denies fever(s) Card Denies chest pain, Denies dyspnea and Denies dyspnea on exertion Resp Denies cough, Denies dyspnea and Denies dyspnea on exertion GI Denies hematochezia and Denies change in bowel habits Denies hematuria Musc Denies back pain and Denies limited range of motion Neuro Denies focal weakness and Denies convulsions Psych Denies depression and Denies mood swings Physical Exam Vital Signs: BMI result Body Mass Index 26.2 Const General: comfortable and no acute distress Resp Effort & Inspection: normal respiratory effort Cardio Rate: regular rate GI Palpation (GI): Soft to palpation Assessment & Plan Assessment & Plan (1) Rectal cancer: Code(s): C20 - Malignant neoplasm of rectum Category: Medical Plan: She had a malignant rectal polyp removed colonoscopically from level 15 cm. The margins were negative. This was well-differentiated. However, there was note of a vascular invasion so this puts her at risk for recurrent disease. She says that she had been seen by [facility] and she was told that no surgical intervention was being planned. I would recommend close follow-up with surveillance flexible sigmoidoscopy with the next 3-6 months. I told her that I have talked to Dr. Busby about this I will see her again in the office after her next flexible sigmoidoscopy. She is comfortable with the plan. Coding Level of Care Code Est Pt Level 3 (35343) Diagnoses Rectal cancer C20
[2024-04-25 12:04] VITALS: BMI 26.2
--- OUTSIDE RECORDS SUMMARY | 2024-04-25 16:40 | XMS_ITS | Continuity of Care Document ---
Author Organization [facility] Address [address] [place] [address] ve [address] [place] [address]- Care Team Providers Care Geophysics Teacher Name Role Phone Jaron Reyes MD, Yolanda Toribio Primary Care Physician Encounter [facility] Date(s): 04/11/24 - 04/18/24 [facility] [address] [place] [address]- Encounter Diagnosis Rectal malignant neoplasm(Discharge Diagnosis) - 04/11/24 Attending Physician: Karina GERMAIN, Jenaro Donald Encounter Type: Office Visit Medications barium sulfate 2% oral suspension See Instructions, Take one bottle 6 hours before exam. Take second bottle 90 mins before exam, # 2 each, 0 Refills, Maintenance, 03/21/24 5:08:00 PM EST, [facility]/pharmacy #[id number], Partial fill upon patientrequest if the prescription is for a schedule II opioid drug., Take one bottle 6 hours before exam.Take second bottle 90 mins before exam Start Date: 03/21/24 Status: Ordered Quantity: 2.0 Unit: each Repeat number: 1 Problem List Condition Confirmation Course Effective Dates Status Health St atus Informant Rectal malignant neoplasm Confirmed Active Diagnosis Diagnosis Type Effective Dates Health Status Cl inical Service Informant Rectal malignant neoplasm Discharge Diagnosis 04/11/24 Vital Signs Most recent to oldest [Reference Range]: 1 Weight 69.3 kg (04/11/24 11:01 AM) Pulse Rate [55-90 bpm] 130 bpm *H* (04/11/24 11:01 AM) Blood Pressure [90-138/55-84 mm Hg] 144/ 99mm Hg *H* (04/11/24 11:01 AM) Temperature [96.8-100.4 DegF] 97.7 DegF (04/11/24 11:01 AM) Blood pressure sites Arm, right (04/11/24 11:01 AM) Temperature Route Temporal (04/11/24 11:01 AM) Social History Social History Type Response Smoking Status Never (less than 100 in lifetime) entered on: 04/11/24 Sex Sex Representation Female (finding) Patient Care team information Care Team Personnel Name: Jaron Reyes MD , Yolanda Toribio Position: Reference Physician Member Role: PCP Address: [address] [place], [place] [address] Telecom: Care Team Related Persons Name: JOSE LAKE Insurance Providers Guarantor name: WINDY Health Plan Information #: 1 Payer: WINDY Member Number: [id number] Policy Number: WINDY Group Number: WINDY Health Plan Information #: 2 Payer: NA Member Number: [id number] Policy Number: WINDY Group Number: NA
--- OUTSIDE RECORDS SUMMARY | 2024-04-25 16:40 | XMS_ITS | Continuity of Care Document ---
Author Organization [facility] Address [address] [place] [address]- Care Team Providers Care Barber Shop Operator Name Role Phone Jaron Reyes MD, Emely Primary Care Physician Encounter 04/12/24 - 04/13/[address] [address] Attending Physician: Not on Staff, Attending MD Referring Physician: Not on Staff, Referring MD Encounter Type: [facility] Medications barium sulfate 2% oral suspension See Instructions, Take one bottle 6 hours before exam. Take second bottle 90 mins before exam, # 2 each, 0 Refills, Maintenance, 03/21/24 5:08:00 PM EST, [facility]/pharmacy #[id number], Partial fill upon patientrequest if the prescription is for a schedule II opioid drug., Take one bottle 6 hours before exam.Take second bottle 90 mins before exam Start Date: 03/21/24 Status: Ordered Quantity: 2.0 Unit: each Repeat number: 1 Problem List Condition Confirmation Course Effective Dates Status Health St atus Informant Rectal malignant neoplasm Confirmed Active Results Radiology Reports * Exam Date Time Procedure Performing Provider Status 04/12/24 1:51 PM MRI Pelvis W+W/O Contrast Auth (Verified) Notes: (MRI Pelvis W+W/O Contrast) Reason For Exam: rectal carcinoma;rectal carcinoma RESULT: MRI Pelvis W + W/O Contrast [facility] VISIT NUMBER :[id number] Patient Name: Abigail Toro Date of : 1955 Date of Exam: 04-12-2024 Referring Physician: Alma Rosa Mckinley [facility]/Hematology-Oncology [address] [place] [address] Exam: MR Pelvis (C-/C+) CPT 84367 Room Description: [facility] 3T MR Pelvis (C-/C+) CPT 03279 INDICATION: rectal carcinoma TECHNIQUE: Multiplanar multisequence noncontrast and contrast-enhanced MRI of the pelvis focusing on rectum was performed. 14 cc of intravenous Dotarem contrast was administered. COMPARISON: None available. FINDINGS: Rectal Tumor: Rectal mass is not appreciated. Approximately 10 cm from the anal verge in the mid-high rectum proximal to the sigmoid takeoff the lumen of the rectum is decompressed. The segment of bowel measures approximately 2.4 cm in length () with mucosal hyperenhancement. There is no associated diffusion restriction in this location to suggest that this represents a mass. There is no abnormal extraluminal soft tissue. T-Stage (Primary Tumor Staging): T0: No evidence of primary tumor. N-Stage (Regional Lymph Nodes): N0: No regional lymph nodes. Extramural Venous Invasion (EMVI): None. Other visualized GI tract segments: Remaining visualized bowel loops are unremarkable. Bones: No osseus lesions. Pelvic organs: The uterus is unremarkable. Small follicle right ovary. Normal left ovary.. Ascites: None. IMPRESSION: 1. No definite rectal mass is appreciated. Short segment of rectal underdistention in the upper rectum approximately 10 cm from the anal verge which demonstrates mucosal hyperenhancement, though no diffusion restriction. It is unclear if this represents an area of focal inflammation from recent biopsy versus accentuation due to underdistention. There is no evidence of extraluminal soft tissue. Correlation with recent colonoscopy is suggested. 2. No evidence of eliza metastatic disease in the pelvis. Electronically Signed By: Steven Bond MD Dictated By: Not on Staff , LILLIANA GERMAIN Dictated Date/Time: 04/12/24 2:46 pm Reviewed By: Not on Staff LILLIANA MD Signed By: Not on Staff , LILLIANA GERMAIN Signed Date/Time: 04/12/24 2:46 pm Transcribed By: JACK Transcribed Date/Time: 04/12/24 2:46 pm Social History Social History Type Response Smoking Status Never (less than 100 in lifetime) entered on: 04/11/24 Sex Sex Representation Female (finding) Patient Care team information Care Team Personnel Name: Yolanda Mera MD Position: Reference Physician Member Role: PCP Address: [address] [place] [address] [address] [place] [address]- Telecom: Care Team Related Persons Name: JOSE TORO Insurance Providers Guarantor name: WINDY Health Plan Information #: 1 Payer: WINDY Member Number: WINDY Policy Number: WINDY Group Number: NA
--- OUTSIDE RECORDS SUMMARY | 2024-04-25 16:40 | XMS_ITS | Continuity of Care Document ---
Author Organization [facility] Address [address] [place] [address] [address] [place] [address]- Care Team Providers Care Gang Vibrator Operator Name Role Phone Jaron Reyes MD, Yolanda Toribio Primary Care Physician [phone] Encounter [facility] Date(s): 03/21/24 - 04/20/24 [facility] [address] [place] [address]- Encounter Type: Triage Medications barium sulfate 2% oral suspension See [...] atus Informant Rectal malignant neoplasm Confirmed Active Social History Social History Type Response Smoking Status Never (less than 100 in lifetime) entered on: 04/11/24 Sex Sex Representation Female (finding) Patient Care team information Care Team Personnel Name: Jaron Reyes MD , Yolanda Toribio Position: Reference Physician Member Role: PCP Address: [address] [place] [address] Drive [address] [place] [address]- Telecom: Care Team Related Persons Name: JOSE LAKE Insurance Providers Guarantor name: WINDY Health Plan Information #: 1 Payer: NA Member Number: NA Policy Number: NA Group Number: NA
== END 2024-04-25 12:31 | disposition home or self-care (01) ==
PROVIDERS: PCP Internal Medicine; Visit Provider Surgery
DX: C20 Malignant neoplasm of rectum (principal)
CPT/HCPCS: 99213

== ENCOUNTER → 2024-04-25 11:50 | Outpatient (BNVA) | payer OTHER, SELFPAY | PROVIDERS: PCP Internal Medicine; Visit Provider Surgery | DX: C20 Malignant neoplasm of rectum (principal) | CPT/HCPCS: 99212 ==

== ENCOUNTER → 2024-05-02 13:40 | Outpatient (BNVA) | payer OTHER, SELFPAY | PROVIDERS: PCP Internal Medicine; Visit Provider Obstetrics & Gynecology | DX: Z01.419 Encounter for gynecological examination (general) (routine) without abnormal findings (principal) | CPT/HCPCS: 99397; 99459 ==

== ENCOUNTER → 2024-05-05 10:16 | Outpatient (BNV) | payer OTHER, SELFPAY | PROVIDERS: PCP Internal Medicine; Visit Provider Radiology Diagnostic Radiology | DX: E04.2 Nontoxic multinodular goiter (principal) | CPT/HCPCS: 76536 ==

== ENCOUNTER 2024-06-16 10:58 | Outpatient (AMB) | payer OTHER, SELFPAY ==
--- NOTE | 2024-06-16 11:01 | MHC.OFFVIS ---
Vital Signs 06/16/24 11:03 06/16/24 11:32 Height 5 ft 4 in Weight 152 lb 8.958 oz BMI 26.2 BP 118/82 Blood Pressure Location Rt brachial Position Sitting Pulse 118 H 100 Pulse Source Pulse Oximeter Pulse Oximetry (%) 98 Oxygen Delivery Method Room Air Intake Visit Reasons: Nontoxic single thyroid nodule Intake Note: New patient present today for Nontoxic single thyroid nodule. 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 CT chest done in Feb 2024 showed thyroid nodules. Thyroid ultrasound 05/05/2024 showed, I reviewed the images myself which showed Right superior TR 3 subcentimeter nodule, right inferior 1 cm TR 4 category nodule and a left midpole 1 cm TR 4 category nodule. no recent TFTS in the chart Patient currently denies heat or cold intolerance, diarrhea or constipation, hair loss, palpitation, anxiety, weight changes, mood changes, low energy, changes in appearance of eyes or vision changes, tremors, increased diaphoresis or dry skin. ? Patient denies any difficulty swallowing, pain on swallowing or voice changes or difficulty breathing. Patient denies any history of childhood neck radiation. Denies having ever used lithium, amiodarone or biotin supplements. Patient denies any family history of thyroid cancer or thyroid disease. Physical exam General: sitting comfortably in no acute distress HEENT: normocephalic/atraumatic, moist oral mucosa Neck: supple, symmetrical, no thyromegaly , no dorsocervical or supraclavicular fat pads Cardiac: normal heart sounds Pulm: normal breath sounds B/L, no added breath sounds Abd: not distended, no tenderness Extremities: no edema, no signs of myxedema Neuro: AAO x3, Speech: normal, no facial droop, moving all 4 extremities US THYROID 05/05/2024 CLINICAL INFORMATION: Nontoxic single thyroid nodule. COMPARISON: None available. TECHNIQUE: Linear transducer grayscale and color Doppler examination with attention to the region of the thyroid. FINDINGS: SIZE: Measurements of the thyroid lobes and nodules are given in sagittal, anteroposterior and transverse dimensions respectively. Right Thyroid Lobe: 5.2 x 1.5 x 1.6 cm, volume 6.3 mL. Parenchyma: The gland echotexture is normal. Thyroid vascularity is normal. Left Thyroid Lobe: 5.7 x 1.7 x 1.5 cm, volume 7.8 mL. Parenchyma: The gland echotexture is normal. Thyroid vascularity is normal. Isthmus: 0.4 cm in maximum AP dimension. Estimated total number of nodules greater than or equal to 1 cm: 3. Dress Draper nodules are described as follows: 1. Location: Right upper pole. Size: 0.0 x 0.7 x 1.0 cm, volume 0.38 mL. Nodule characteristics: Composition: Solid (2). Echogenicity: Hyperechoic (1). Shape: Not taller than wide (0). Margins: Smooth (0). Echogenic Foci: None (0). ACR TI-RADS total points: 3 ACR TI-RADS category: 3 2. Location: Right lower pole. Size: 0.8 x 0.6 x 1.0 cm, volume 0.24 mL. Nodule characteristics: Composition: Solid (2). Echogenicity: Hypoechoic (2). Shape: Not taller than wide (0). Margins: Smooth (0). Echogenic Foci: None (0). ACR TI-RADS total points: 4 ACR TI-RADS category: 4 3. Location: Left midpole. Size: 1.0 x 0.4 x 0.8 cm, volume 0.17 mL. Nodule characteristics: Composition: Solid (2). Echogenicity: Hypoechoic (2). Shape: Not taller than wide (0). Margins: Smooth (0). Echogenic Foci: None (0). ACR TI-RADS total points: 4 ACR TI-RADS category: 4 4. There are 2 subcentimeter spongiform nodules, one in the right lower pole measuring 0.8 cm, and one in the left or pole measuring 0.8 cm. (TR category 1) NODES: No lymphadenopathy is seen in the tissue surrounding the thyroid gland. US/US thyroid IMPRESSION: 1. Multinodular thyroid. Nonnodular thyroid is normal. 2. There is a 1.0 cm TR category 3 nodule in the right upper pole. No follow-up recommended. 3. There is a 1.0 cm TR category 4 nodule in the right lower pole. Follow-up recommended as per below. 4. There is a 1.0 cm TR category 4 nodule in the left midpole. Follow-up recommended as per below. [facility] Medical History (Updated 06/16/24 @ 11:25 by Edie Faust MD) Multinodular goiter Rectal cancer Screening for cervical cancer Chronic left shoulder pain Allergic rhinitis Constipation Pure hypercholesterolemia GERD (gastroesophageal reflux disease) Surgical History Hx of colonoscopy Hx of abdominoplasty History of bladder suspension procedure Family History Father CVD (cardiovascular disease) Mother Unknown family medical history Sister Breast cancer Pancreatic cancer Social History Household Members: Family Household Members Other:: son Housing: Apartment Alcohol intake: current Alcohol intake frequency: does not drink Alcohol type: wine Patient Tobacco Use Status: Never used Tobacco Tobacco use type: Cigarette e-Cigarette/Vaping Use: Never Used Second Hand Smoke Exposure: No service: No Current occupational status: unemployed Sexual orientation: Straight/Heterosexual Gender identity: Female Cognitive needs: No Hearing needs: No Vision needs: No Female Reproductive History Menstrual Age of Menarche: 15 Physical Exam Vital Signs: Last Vital Signs Pulse 118 H 06/16/24 11:03 BP 118/82 06/16/24 11:03 Pulse Ox 98 06/16/24 11:03 Oxygen Delivery Method Room Air 06/16/24 11:03 BMI result Body Mass Index 26.2 Assessment & Plan Assessment & Plan (1) Multinodular goiter: Code(s): E04.2 - Nontoxic multinodular goiter Category: Medical Plan: 68-year-old female with no family history of thyroid cancer, with no personal history of head or neck radiation who is coming in today for initial evaluation of nontoxic multinodular goiter. CT chest done in Feb 2024 showed thyroid nodules. Thyroid ultrasound 05/05/2024 showed, I reviewed the images myself which showed Right superior TR 3 subcentimeter nodule, right inferior 1 cm TR 4 category nodule and a left midpole 1 cm TR 4 category nodule. no recent TFTS in the chart She does not have any compressive symptoms , no symptoms of hyper or hypothyroidism. I explained that it is common to have thyroid nodules. About 95% of the time these nodules are benign. However if the nodule is > 1 cm in size or suspicious on ultrasound then a fine need aspiration biopsy is recommended. At this time her nodules do not meet criteria for FNA, we will plan to repeat an ultrasound in 1 year. Plan: -do TSH, free T4 now , we will communicate results -ordered ultrasound of the thyroid to be done in April 2025 -follow up in May 2025 to discuss results Plan I spent 45 minutes in reviewing the record, seeing the patient and documenting in the medical record. Orders: Orders Thyroid Stimulating Hormone Today E04.2 - Nontoxic multinodular goiter Free T4 (Free Thyroxine) Today E04.2 - Nontoxic multinodular goiter US thyroid 05/01/25 E04.2 - Nontoxic multinodular goiter Patient Instructions: Do blood work today Do ultrasound of the thyroid in Apr 2025, someone will call you to schedule this Do another set of repeat labs in Apr 2025 Follow up in May 2025 Se realizar? preston ecograf?a de tiroides en 2025. Se le llamar? para programar preston eliu. Seguimiento en 2025. Coding Level of Care Code New Pt Level 4 (88287) Diagnoses Multinodular goiter E04.2 Time Spent (min) 45
[2024-06-16 11:03] VITALS: BP 118/82; PULSE 118; O2SAT 98; BMI 26.2
[2024-06-16 11:32] VITALS: PULSE 100
--- OUTSIDE RECORDS SUMMARY | 2024-06-16 12:56 | XMS_ITS | Continuity of Care Document ---
Author Organization [facility] ter Address [address] [place] [address]- Care Team Providers Care Study Hall Supervisor Name Role Phone Jaron Reyes MD, Yolanda Toribio Primary Care Physician [phone] Encounter [facility] Date(s): 06/15/24 - 06/15/[address] [address]- Discharge Disposition: A-D/C Home Attending Physician: Jenaro Collins MD Admitting Physician: Jenaro Collins MD Referring Physician: Jenaro Collins MD Encounter Type: Disch Daystay Medications barium sulfate 2% oral suspension See Instructions, Take one bottle 6 hours before exam. Take second bottle 90 mins before exam, # 2 each, 0 Refills, Maintenance, 03/21/24 5:08:00 PM EST, [facility]/pharmacy #[id number], Partial fill upon patientrequest if the prescription is for a schedule II opioid drug., Take one bottle 6 hours before exam.Take second bottle 90 mins before exam Start Date: 03/21/24 Status: Ordered Quantity: 2.0 Unit: each Repeat number: 1 Problem List Condition Confirmation Course Effective Dates Status Health St atus Informant Rectal malignant neoplasm Confirmed Active Vital Signs Most recent to oldest [Reference Range]: 1 2 3 Height 165 cm (06/15/24 8:41 AM) Oxygen Saturation [94-100 %] 98 % (06/15/24 10:20 AM) 98 % (06/15/24 10:15 AM) 98 % (06/15/24 10:10 AM) Pulse Rate [55-90 bpm] 98 bpm *H* (06/15/24 8:41 AM) Blood Pressure [90-138/55-84 mm Hg] 123/77mm Hg (06/15/24 10:20 AM) 114/82mm Hg (06/15/24 10:15 AM) 107/85mm Hg (06/15/24 10:10 AM) Respiratory Rate [16-30 br/min] 18 br/min (06/15/24 10:20 AM) 16 br/min (06/15/24 10:15 AM) 18 br/min (06/15/24 10:10 AM) Temperature [96.8-100.4 DegF] 97.5 DegF (06/15/24 10:10 AM) 97.6 DegF (06/15/24 8:41 AM) Liters per Minute 6 L/min (06/15/24 10:10 AM) Mode of Delivery (Oxygen) Room air (06/15/24 10:20 AM) Room air (06/15/24 10:15 AM) Simple face mask (06/15/24 10:10 AM) Blood pressure sites Arm, left (06/15/24 10:10 AM) Arm, left (06/15/24 8:41 AM) Temperature Route Temporal (06/15/24 10:10 AM) Temporal (06/15/24 8:41 AM) Dry Weight 67 kg (06/15/24 8:41 AM) Social History Social History Type Response Smoking Status Never (less than 100 in lifetime) entered on: 04/11/24 Sex Sex Representation Female (finding) Flexible sigmoidoscopy study * Event Display: GG Sigmoidoscopy Please click on pdf link to open report Hospital Progress note * Cici Chan RN: PERFORM, SIGN, VERIFY Event Display: Progress Note Hospital Authored Date: [id number] Patient: ABIGAIL LAKE Age: 68 years Sex: Female : 1955 Associated Diagnoses: None Author: Cici Chan RN Findings Narrative/Incidental Left VM w/instructions for 06/15/24 procedure using shoe reconditioner Jordan #[id number]. Lenka BONDS. Note * Ariadne MURRAY, Darrell Talavera: PERFORM Event Display: Discharge/Transfer Note Hospital Authored Date: [id number] Nursing Discharge Note Entered On: 06/15/2024 10:39 EDT Performed On: 06/15/2024 10:39 EDT by Darrell Ron RN Nursing Discharge Note 2 Discharge Time : 06/15/2024 10:55 EDT Darrell Ron RN - 06/15/2024 11:14 EDT Discharge Level of Care at Discharge : Home/Care Home/Foster Care Patient Left Unit Via : Wheelchair Patient Accompanied Off Unit with : Responsible adult DC Instructions Provided & Signed by Pt : Yes Patient Understands D/C Instructions : Yes Patient Instructions Discharge Signed : Yes Did Pt have Specialty Bed or Wound Vac : No Darrell Ron RN - 06/15/2024 10:39 EDT * Darrell Ron RN: PERFORM Event Display: Patient Education/Instruction Authored Date: [id number] Inpatient Adult Discharge Instructions. [address] [address] Name: ABIGAIL LAKE : 1955?? Visit: 06/15/2024 08:23?? Current Date: 06/15/2024 10:41 ?? Account: [id number]?? Inpatient Adult Discharge Instructions We would like to thank you for allowing us to assist you with your healthcare needs. The following includes patient education materials and information regarding your injury/illness. Our entire staffstrives to provide an excellent experience for our patients and their families. PLEASE ENSURE YOU FOLLOW-UP PER THE INSTRUCTIONS BELOW! ?? YOUR OPINION IS IMPORTANT TO US! Please complete the survey you may receive by mail or email. Your feedback will be used to make improvements to the healthcare experiences of our patients and their families. Surveys are administered by [employer] ?? If further treatment with your primary care physician or another doctor is recommended, it is important for you to keep the appointment. Call your primary care physician or return to the Emergency Department immediately if your condition worsens, fails to improve, or new symptoms develop. If you need to find a doctor, you can call [facility] for a referral at [phone] or toll free at [phone] ([phone]) or log in to [email or web address].. ?? [facility], in keeping with [facility] guidance, no longer requires face masks for staff, patientsor visitors in most situations. Similiar to time spent indoors at other locations, there is the chance that you were exposed to repiratory viruses during your time with us (such as flu or COVID-19). If you develop symptoms concerning for a viral respiratory infection, please seek testing (and treatment if indicated) from your medical provider or home test kit. ?? You can view and manage your care through the patient portal or by using a health care dharmesh of your choosing. [employer] is a website that allows you to securely view your medical information including your hospital discharge summary, office visit summaries, medications and follow-up visits. You can also request appointments, renew medications, and request access to your medical information using a health care dharmesh of your choosing, or just ask a question. You are entitled to know the individuals who participated in your treatment. This information is available within your medical record and will be provided upon your request. You can enroll at [email or web address] or register d uring your next office visit. You have been discharged from [facility], Patient Care Unit: ENDO??. If you have any questions regarding these instructions, including results of studies pending, afteryou leave, please call us and we will be happy to assist you 20/10. [facility] Nursing Unit Direct Phone Number, for 20/10 contact and results of studies pending ENDO [address] [place] [address] Your Care Team Attending Physician Jenaro Collins MD?? Consulting Providers Jenaro Collins MD?? Discharging Providers Jenaro Clolins MD Tests Performed Below is a partial list of the tests performed during your hospitalization. You may have had other tests and procedures not included in this list. Please discuss all test results with your provider. No tests performed during this visit.?? Primary Care Provider Yolanda Mera MD? Advance Directive Health Care Proxy on File No Patient refuses to discuss Discharge Vitals Temperature: 97.5 DegF Height: 165 cm Pulse Rate:??98 bpm??High ?? Respiratory Rate: 18 br/min ?? Systolic Blood Pressure: 123 mm Hg ?? Diastolic Blood Pressure: 77 mm Hg ?? Oxygen Saturation: 98 % ?? Studies Pending All studies ordered during this hospital stay have been completed unless listed below. Please discuss all pending results with your provider listed above in these instructions. ?? No incomplete studies found?? What to do next Instructions From Your Doctor ?? Orders?? Daystay Protocol, ??06/15/24 10:37:00 EDT?? You Need to Schedule the Following Appointments Follow Up with??follow up with PCP as needed Follow Up with??Yolanda Reyse MD When:??In 0 days Where: [address] [place] [address]- Business (1) Discharge Medications ABIGAIL LAKE :1955 Visit Date:06/15/2024 Medications: Please continue your medications until treatment is completed or stopped by your provider. Medications not listed below should be discontinued. Discuss any questions related to medications with your provider. What How Much When Instructions Next Dose Unchanged Barium Sulfate (barium sulfate 2% oral suspension) See instructions Take one bottle 6 hours before exam. Take second bottle ??90 mins before exam ?? Prescription Given During Visit No new medications prescribed at time of discharge.?? Laboratory Results Below is a partial list of the most recent Laboratory test results done prior to this discharge. You may have had other tests and procedures not included in this list. Please discuss all test resultswith your provider. Allergies (NKA means No Known Allergies) No active allergies Problems Active Problems??(1) Rectal malignant neoplasm?? Education Materials Below is the list of Educational Leaflet Providered with your Discharge Instructions. [employer] Patient Education - Surgery Medical Daystay Surgical Overnight Discharge Instructions?? [employer] Patient Education - Understanding Colon and Rectal Polyps?? Valuables and Belongings I fully understand and agree that [facility] accepts no responsibility for all my personal property including clothing, toilet articles, radios, jewelry, dentures, hearing aids, rings, money, or any other property that is in my possession or is brought to me after admission. I understand certain valuables may be placed in a hospital safe for a short period of time. I understand that the hospital is not liable for loss or damage due to accident, fire, or other natural occurrence while said property is in the safe. I accept full responsibility for any personal property that I keep with me, and will not hold the hospital responsible in case of loss or disappearance. I acknowledge that i have been encouraged to send valuables and belongings home. ? Other Discharge Information ? Case Management Discharge Plan?? Discharge Plan?? Discharge Level of Care at Discharge: Home/Care Home/Foster Care ?? Pulmonary Rehab Status?? Pulmonary Rehab Discharge Status?? Respiratory Rate: 18 br/min ? Common Emergency Awareness Tips IS IT A STROKE? Act FAST and Check for these signs: FACE Does the face look uneven? ARM Does one arm drift down? SPEECH Does their speech sound strange? TIME Call at any sign of stroke ?? Heart Attack Signs Chest discomfort: Most heart attacks involve discomfort in the center of the chest and lasts more than a few minutes, or goes away and comes back. It can feel like uncomfortable pressure, squeezing, fullness or pain. Discomfort in upper body: Symptoms can include pain or discomfort in one or both arms, back, neck, jaw or stomach. Shortness of breath: With or without discomfort. Other signs: Breaking out in a cold sweat, nausea, or lightheaded. Remember, MINUTES DO MATTER. If you experience any of these heart attack warning signs, call to get immediate medical attention! ?? Smoking can increase your chances of developing chronic health problems and can cause harmful effects to other family members in your house. If you smoke, you are strongly encouraged to quit. Please call [facility] Link at [phone] or [phone] ([phone]) or log in to [email or web address] for referrals to smoking cessation programs. ?? 986 Suicide & Crisis Lifeline is available 20/10 if you or someone you know needs to find a reason to keep living. By calling 493 you'll be connected to a skilled, trained counselor at a crisis center in your area. INPATIENT DISCHARGE INSTRUCTIONS SIGNATURE ABIGAIL WILLIAMSON Location:[facility] Registration Date and Time:06/15/2024 08:23 EDT Primary Care Physician: Jaron Reyes MD , Emely, Attending Physician: Karina GERMAIN, Jenaro Donald, ABIGAIL PETER, have received the above patient education materials/instructions and have verbalizedunderstanding. If ambulance or transport services are being used I further acknowledge being given a choice of service. ?? If you need to contact me, please call me at this number: . Patient/Tankroom Tender Name: Patient/Tankroom Tender Signature: Relationship to Patient: Witness Name/Signature: Date: * Darrell Ron RN: PERFORM, SIGN, VERIFY Event Display: Patient Education Handout Authored Date: [id number] * Darrell Ron RN: PERFORM Event Display: Patient Education Leaflets Authored Date: [id number] Surgery Medical Daystay Surgical Overnight Discharge Instructions ?? 295 Medical Daystay/Surgical Overnight Discharge Instructions ? Since your coordination and judgment may be altered by medication and/or anesthesia, a responsible adult must drive you home from the hospital. ? If you have received medication for pain or sedation while under our care, you should not drive, operate machinery, drink alcohol, or sign any legal documents for 24 hours.?? You should have someone with you at home tonight. ? Remain at home the day of discharge.?? You may be up and about unless otherwise instructed by your physician. ? You may resume your daily prescription medication schedule.?? Any depressant medication should be avoided for 24 hours unless otherwise instructed by your surgeon or anesthesiologist. ? Call your physician for a follow-up appointment.? If you experience unusual or severe pain not relied by your pain medication, excessive bleedingor drainage, persistent nausea and vomiting, excessive swelling or redness, foul odor from incisionsite or fever over 100.6F, you need to call your physician. ? A follow-up phone call by a nurse will be made the day after your procedure.?? If you have stayed with us over night, you will not be receiving a follow-up phone call. ? Nausea and vomiting are a common side effect of prescription pain medication.?? We recommend that pills are not taken on an empty stomach.?? While taking any prescription pain medication you should not drive or drink alcohol. ? * Ariadne MURRAY, Darrell Talavera: PERFORM Event Display: Patient Education Leaflets Authored Date: [id number] Understanding Colon and Rectal Polyps ?? [address] Qu?? son los p??lipos del colon y el recto El colon (tambi??n llamado intestino grueso) es un tubo muscular que forma la ??ltima parte del tubo digestivo. Tiene la funci??n de absorber agua y almacenar desechos s??lidos. El colon mide entre 4a 6??pies de longitud. El recto es la porci??n final del colon y tiene preston longitud de 6??pulgadas.El colon y el recto tienen un revestimiento liso compuesto de millones de c??lulas. Los cambios que experimentan estas c??lulas pueden originar crecimientos llamados p??lipos en el colon. Estos pueden volverse cancerosos, por lo que deben ser extirpados. Hay muchas pruebas disponibles para detectarel c??ncer de colon. Bora la colonoscopia es el ??idania estudio que permite sammie directamente el interior del intestino grueso y aplicar un tratamiento de inmediato. [place] la colonoscop??a, estos p??lipos pueden removerse. La frecuencia con la que debe realizarse la prueba depende de muchos factores. Estos incluyen prince afecci??n, pan antecedentes familiares, pan s??ntomas y los hallazgos en colonoscopias anteriores.?? Cuando cambia el revestimiento del colon Los cambios que tienen lugar en las c??lulas que revisten el colon o el recto pueden causar crecimientos llamados p??lipos. A lo french de los a??os, los p??lipos pueden volverse cancerosos. Remover los p??lipos a tiempo puede prevenir el desarrollo del c??ncer. ?? P??lipos Los p??lipos son masas de tejido con aspecto carnoso que se mukesh en el revestimiento del colon o el recto. Los p??lipos lynda??os no suelen ser cancerosos (son benignos). Sin embargo, con el tiempo, las c??lulas en un p??lipo pueden cambiar y volverse precancerosas. Determinados tipos de p??lipos conocidos carmen p??lipos adenomatosos y p??lipos dentados son precancerosos. El riesgo del c??ncer tambi??n aumenta con el chuck??o del p??lipo y determinadas caracter??sticas de las c??lulas y los genes. [place] significa que, si no se extirpan, pueden volverse cancerosos.??Los p??lipos hiperpl??sicos son benignos. Pueden crecer bastante y no volverse cancerosos.? C??ncer Barbara todos los tipos de c??ncer colorrectales se desarrollan cuando las c??lulas de los p??lipos comienzan a crecer de forma anormal. A medida que crece un tumor canceroso, puede afectar cada vez m??s ??reas del colon o el recto. Con el tiempo, el c??ncer tambi??n puede desarrollarse m??s all?? delcolon o el recto y extenderse a ??rganos cercanos o a gl??ndulas llamadas ganglios linf??ticos. Las c??lulas tambi??n pueden diseminarse a otras partes del cuerpo. Arleth proceso se conoce carmen met??stasis. Mientras m??s temprano se remueva el tumor, mejores ser??n las posibilidades de evitar que lasc??lulas se diseminen. ?? Last Reviewed Date: 2020 ?? [id number] [employer]. Todos los derechos reservados. Esta informaci??n no pretende sustituir la atenci??n m??dica profesional. S??lo prince m??dico puede diagnosticar y tratar un problema de kaleb. ?? Patient Care team information Care Team Personnel Name: Jaron Reyes MD , Yolanda Toribio Position: Reference Physician Member Role: PCP Address: [address] [place] [address] [address] [place] [address]- Telecom: Care Team Related Persons Name: JOSE LAKE Insurance Providers Guarantor name: [employer] Plan Information #: 1 Payer: NA Member Number: [id number] Policy Number: NA Group Number: [facility] Information #: 2 Payer: NA Member Number: [id number] Policy Number: NA Group Number: NA
== END 2024-06-16 11:35 | disposition home or self-care (01) ==
LOC: HO.ENCR 10:58
PROVIDERS: PCP Internal Medicine; Visit Provider Student in an Organized Health Care Education/Training Program
DX: E04.2 Nontoxic multinodular goiter (principal)
CPT/HCPCS: 99204

== ENCOUNTER 2024-06-16 11:38 | Outpatient (REF) | payer OTHER, SELFPAY ==
[2024-06-16 14:02] LABS: Free T4 (Free Thyroxine) 1.16 ng/dL (0.71-1.85); Thyroid Stimulating Hormone 1.24 uIU/mL (0.32-4.0)
== END 2024-06-16 11:39 | disposition home or self-care (01) ==
LOC: HO.10HDL 11:38
PROVIDERS: Visit Provider Student in an Organized Health Care Education/Training Program
DX: E04.2 Nontoxic multinodular goiter (principal)
CPT/HCPCS: 36415; 84439; 84443; 99202

== ENCOUNTER 2024-11-24 10:20 | Outpatient (REF) | payer OTHER, SELFPAY ==
--- NOTE | ~2024-11-24 | MM_ITS ---
EXAMINATION: MM SCREENING DIGITAL BREAST TOMOSYNTHESIS, BILATERAL CLINICAL INFORMATION: Screening. Asymptomatic. COMPARISON: Comparison made to multiple prior, most recent September 11, 2023, and most remote May 31, 2018. TECHNIQUE: Digital breast tomosynthesis is performed in mediolateral oblique and craniocaudal views along with computer-aided detection (CAD). FINDINGS: BREAST COMPOSITION: There are scattered areas of fibroglandular density (ACR BI-RADS breast composition Category b). BILATERAL BREASTS: No significant masses, suspicious calcifications or other abnormalities are seen in either breast. MM/MM tomosynthesis screening BI IMPRESSION: BILATERAL BREASTS: Negative, no mammographic evidence of malignancy. Normal interval follow-up is recommended in 12 months. ASSESSMENT: BI-RADS 1 - Negative RECOMMENDATION: Routine annual mammography screening. FOLLOW-UP: 1 year F/U This examination should not preclude the clinical evaluation of a suspicious palpable abnormality. This patient's information was entered into a reminder system with a target due date for their next mammogram. Electronically signed by: Christi Hughes MD 11/26/2024 05:23 PM EDT
== END 2024-11-24 10:21 | disposition home or self-care (01) ==
LOC: HO.MAMMO 10:20
PROVIDERS: PCP Internal Medicine; Visit Provider Obstetrics & Gynecology
DX: Z12.31 Encounter for screening mammogram for malignant neoplasm of breast (principal)
CPT/HCPCS: 77063; 77067

== ENCOUNTER → 2024-11-24 10:45 | Outpatient (BNV) | payer OTHER, SELFPAY | PROVIDERS: PCP Internal Medicine; Visit Provider Radiology Body Imaging | DX: Z12.31 Encounter for screening mammogram for malignant neoplasm of breast (principal) | CPT/HCPCS: 77063; 77067 ==

== ENCOUNTER 2025-03-02 08:44 | Outpatient (REF) | payer OTHER, SELFPAY ==
[2025-03-02 10:00] LABS: Alanine Aminotransferase 26 U/L (0-31); Albumin Level 4.5 g/dL (3.5-5.0); Alkaline Phosphatase 79 U/L (39-117); Anion Gap 9 (12-20); Aspartate Amino Transferase 26 U/L (5-31); Blood Urea Nitrogen 12 mg/dL (9-16); Calcium 9.5 mg/dL (8.4-10.2); Carbon Dioxide 28 mmol/L (22-29); Chloride 109 mmol/L (96-108); Cholesterol 264 mg/dL (<200); Estimated Glomerular Filt Rate > 60; HDL Cholesterol 61 mg/dL (>40); Potassium 3.8 mmol/L (3.3-5.1); Sodium 142 mmol/L (135-145); Total Protein 7.5 g/dL (6.5-8.0); Triglycerides 111 mg/dL (<150)
[2025-03-02 10:17] LABS: Thyroid Stimulating Hormone 1.48 uIU/mL (0.32-4.0)
== END 2025-03-02 08:45 | disposition home or self-care (01) ==
LOC: HO.LAB 08:44
PROVIDERS: PCP Internal Medicine; Visit Provider Internal Medicine
DX: Z00.00 Encounter for general adult medical examination without abnormal findings (principal); E78.5 Hyperlipidemia, unspecified; C18.9 Malignant neoplasm of colon, unspecified; E04.1 Nontoxic single thyroid nodule; E55.9 Vitamin D deficiency, unspecified; Z13.31 Encounter for screening for depression; Z13.39 Encounter for screening examination for other mental health and behavioral disorders
CPT/HCPCS: 36415; 80053; 80061; 82306; 84443; 90471; 96127; 99397

== ENCOUNTER 2025-03-02 10:04 | Outpatient (AMB) | payer OTHER, SELFPAY ==
[2025-03-02 10:13] VITALS: BP 130/88; PULSE 97; TEMP 36.3; O2SAT 99
--- NOTE | 2025-03-02 10:13 | MHC.PC.OV ---
Vital Signs 03/02/25 10:13 Height 5 ft 4 in BP 130/88 Blood Pressure Location Lt brachial Position Sitting Pulse 97 Pulse Source Pulse Oximeter Temp 97.3 F Temp Source Temporal Artery Scan Pulse Oximetry (%) 99 Oxygen Delivery Method Room Air Intake Visit Reasons: Annual Exam Intake Note: Patient here for an annual physical exam Wood Buffer Required: No Wood Buffer Name: Provider speaks [place] Accompanied by: Self / Same As Patient Allergies alendronate sodium Adverse Reaction (Intermediate, Verified 03/02/25 10:29) nausea, joint pain Medication List - Last Reconciled 03/02/25 by Yolanda Reyes MD cholecalciferol (vitamin D3) 25 mcg PO DAILY omeprazole 20 mg PO DAILY 90 days Tobacco use date assessed: 03/02/25 Fall risk assessment: No Falls in past year Last assessed Fall Risk: 03/02/25 Dental Screening Dental Screen Date: 03/02/25 Did you have a dental visit in the last 12 months?: Yes Did you have a dental problem in the last 6 months where you did not have access to dental care?: No Was dental information given to patient?: Patient has dentist HPI HPI Comments History of Present Illness Details The patient is a 69-year-old female presenting for her annual physical examination. Her current medications include vitamin D and a medication for acid reflux. She has a known allergy to alendronate, which causes nausea and joint pain. Her surgical history includes an abdominoplasty, breast lift, and bladder suspension. Her father at age 65 from a heart condition, and her mother at age 35 during childbirth. Regarding health maintenance, the patient is not up to date on her tetanus and pneumonia vaccinations. She had a mammogram this year and a colonoscopy last year. Her last Pap smear was in 2021 and she was informed she does not require further screenings after age 65. [facility] Medical History Multinodular goiter Rectal cancer Screening for cervical cancer Chronic left shoulder pain Allergic rhinitis Constipation Pure hypercholesterolemia GERD (gastroesophageal reflux disease) Surgical History Hx of colonoscopy Hx of abdominoplasty History of bladder suspension procedure Family History Father CVD (cardiovascular disease) Mother Unknown family medical history Sister Breast cancer Pancreatic cancer Social History (Updated 03/02/25 @ 10:34 by Yolanda Reyes MD) Household Members: Family Household Members Other:: son Housing: Apartment Alcohol intake: current Alcohol intake frequency: does not drink Alcohol type: wine Patient Tobacco Use Status: Never used Tobacco Tobacco use type: Cigarette e-Cigarette/Vaping Use: Never Used Second Hand Smoke Exposure: No service: No Current occupational status: unemployed Sexual orientation: Straight/Heterosexual Gender identity: Female Cognitive needs: No Hearing needs: No Vision needs: No Female Reproductive History Menstrual Age of Menarche: 15 Questionnaire PHQ-9 Over the last 2 weeks, how often have you been bothered by any of the following problems? 1. Little interest or pleasure in doing things: not at all 2. Feeling down, depressed, or hopeless: not at all 3. Trouble falling or staying asleep, or sleeping too much: not at all 4. Feeling tired or having little energy: not at all 5. Poor appetite or overeating: not at all 6. Feeling bad about yourself - or that you are a failure or have let yourself or your family down: not at all 7. Trouble concentrating on things, such as reading the newspaper or watching television: not at all 8. Moving or speaking so slowly that other people could have noticed. Or the opposite - being so fidgety or restless that you have been moving around a lot more than usual: not at all 9. Thoughts that you would be better off or of hurting yourself in some way: not at all Total score: 0 Depression Screening Interpretation: Negative Depression Screening Done: Yes 62790 - PHQ-9 Billing: Yes Source: Developed by Drs. Chepe Carmona, Rosemarie Jin, Cruz Lowery and colleagues, with an educational carmen from [employer]. Thrive Questionnaire Date Thrive assessed: 03/02/25 I am a: Patient What is your living situation today?: I have a steady place to live Within the past 12 months, did the food you bought not last and you didn't have the money to get more?: Never true Within the past 12 months, did you worry whether your food would run out before you got money to buy more?: Never true Do you have trouble paying for medicines?: No Do you have trouble getting transportation to medical appointments?: No Do you have trouble paying your heating and electricity bill?: No Do you have trouble taking care of your child, family member or friend?: No Do you have trouble with day-to-day activities such as bathing, preparing meals, shopping, managing finances, etc.?: No Are you currently unemployed and looking for a job?: No Are you interested in more education?: No Please select the resources that you would like help with: None Currently or been in a relationship where the following occur: No concerns reported THRIVE Score: 0 AUDIT C Alcohol Use Questionnaire (AUDIT-C) 1. How often do you have a drink containing alcohol?: Never Total Score: 0 CINDY-7 AMB Questionnaire CINDY-7 Date CINDY - 7 assessed: 03/02/25 Feeling nervous, anxious, or on edge: 0 = Not at all Not being able to stop or control worryin = Not at all Worrying too much about different things: 0 = Not at all Trouble relaxin = Not at all Being so restless that it is hard to sit still: 0 = Not at all Becoming easily annoyed or irritable: 0 = Not at all Feeling afraid as if something awful might happen: 0 = Not at all Total CINDY-7 score (0-4 normal; 5-9 mild; 10-14 moderate; 15-21 severe): 0 Source: Developed by Drs. Chepe Carmona, Rosemarie Jin, Cruz Lowery and colleagues, with an educational carmen from [employer]. CINDY-7 Assessment Billing CINDY-7 Assessment Tool: CINDY-7 Assessment 57440 Review of Systems Const All systems reviewed & are unremarkable except as noted in HPI and below Card Denies chest pain at rest, Denies chest pain with activity, Denies edema, Denies irregular heart rhythm, Denies claudication, Denies dyspnea, Denies dyspnea on exertion, Denies orthopnea, Denies paroxysmal nocturnal dyspnea and Denies slow heart rate Resp Denies cough, Denies dyspnea and Denies dyspnea on exertion GI Denies abdominal pain, Denies change in bowel habits, Denies excessive flatus, Denies nausea and Denies vomiting Denies urinary incontinence, Denies urinary hesitancy and Denies urinary urgency Musc Denies atrophy, Denies deformity and Denies limited range of motion Skin/Breast Denies bleeding lesions, Denies changing lesions and Denies rash Physical exam (Primary Care) Vital Signs: Last Vital Signs Temp 97.3 F 03/02/25 10:13 Pulse 97 03/02/25 10:13 BP 130/88 03/02/25 10:13 Pulse Ox 99 03/02/25 10:13 Oxygen Delivery Method Room Air 03/02/25 10:13 Tobacco/Smoking Status: Tobacco use Status Tobacco use date assessed 03/02/25 03/02/25 10:14 Patient Tobacco Use Status Never used Tobacco 03/02/25 10:34 Tobacco use type Cigarette 03/02/25 10:34 e-Cigarette/Vaping Use Never Used 03/02/25 10:34 PHQ-9: PHQ-9 Score PHQ-9: Total score 0 03/02/25 10:32 Depression Screening Interpretation: Negative Thrive Assessment: Date of Thrive Assessment Date Thrive assessed 03/02/25 03/02/25 10:14 Currently or been in a relationship where the following occur: No concerns reported [facility] Head: Yes normal to inspection, Yes normocephalic and Yes atraumatic Ears: external ears normal Eyes General: appearance normal, both eyes and all related structures Eyelids: Yes eyelids normal Conjunctivae: conjunctivae normal Neck Neck: Yes normal visual inspection and Yes supple Resp Effort & Inspection: normal respiratory effort Auscultation: clear to auscultation bilaterally Cardio Jugular venous distension: no JVD Rate: regular rate Rhythm: regular rhythm Heart sounds: S1 normal heart sound present and S2 normal heart sound present GI Inspection: Yes normal to inspection Palpation (GI): Soft to palpation and nontender Auscultation: normal bowel sounds Skin General skin exam: no rashes or lesions noted Neuro General: no focal motor deficits Extrem General: Yes full ROM Psych Appearance: grossly normal Office Procedures Flu Questionnaire Does the patient have a severe egg allergy?: No Does the patient have severe life threatening allergies?: No Does the patient have a fever or illness today?: No Has the patient ever had Guillain-Algoma Syndrome?: No Has the patient ever had any past reaction to a flu shot?: No Immunizations Fluarix [id number] (PF) 45 mcg (15 mcg x 3)/0.5 mL IM syringe Performing Provider: Yolanda Reyes MD [facility] Documented (not given) by: Paola Cheng CMA on 03/02/25 10:20 Reason Not Given: Patient Refused Coding Level of Care Code Est Pt Prev Care >65y(36637) Diagnoses Physical exam Z00.00 Additional Codes CINDY-7 Assessment Billing - CINDY-7 Assessment Tool: CINDY-7 Assessment 06758 ([id number]) PHQ-9 - 87185 - PHQ-9 Billing: Yes ([id number]) Time Spent (min) 31 Assessment & Plan Assessment & Plan (1) Physical exam: Code(s): Z00.00 - Encounter for general adult medical examination without abnormal findings Category: Medical Plan Repeat in a year. Continue yearly mammogram. No need For Pap smear. Continue colonoscopies. Orders: Orders Influenza [id number] Immunization Today Z23 - Encounter for immunization
== END 2025-03-02 10:44 | disposition home or self-care (01) ==
LOC: HO.HMCH 10:04
PROVIDERS: PCP Internal Medicine; Visit Provider Internal Medicine
DX: Z00.00 Encounter for general adult medical examination without abnormal findings (principal); Z23 Encounter for immunization